=== PATIENT | female | born 1950 | race Caucasian/White ===

== ENCOUNTER → 2019-11-22 | Outpatient (CLI) | payer MEDICARE, OTHER ==
[~2019-11-22] MED LIST: BRIM0.2S13 OD; CYCL10TA5 PO; GLIP2.5T6 PO; LATA0.0015 OP; METF500T13 PO; OMEP-221 PO; PREDOPD OU; ROSU20TA5 PO; SUCR1TAB56 PO; VITA-199 PO
== END ==
LOC: M LABSMTC 12:00
PROVIDERS: ATTEND Anesthesiology
DX: Z01.812 Encounter for preprocedural laboratory examination (principal); Z20.828 Contact with and (suspected) exposure to other viral communicable diseases
CPT/HCPCS: C9803; U0003

== ENCOUNTER 2019-11-27 07:51 | Day surgery (SDC) | payer MEDICARE ==
[~2019-11-27] VITALS: Ht 154.9 cm; Wt 78.9 kg
[~2019-11-27 07:51] MED LIST changes: +LIDOCAINE 2% 100MG/5ML SDV (FOR ANES.) As Ordered ONE; +NS 1,000 ML IV ONE; +fentaNYL 100 MCG/2 ML INJECTION (J3010) As Ordered ONE; +propofoL 200 MG/20 ML VIAL As Ordered ONE
--- NOTE | 2019-11-27 09:14 | ROOR ---
Patient Name: Malia Bravo Procedure Date: 11/27/2019 8:48 AM Date of : 1950 Age: 68 Room: [facility] Gender: Female Note Status: Finalized Procedure: Upper Endoscopy + Biopsies Indications: Heartburn, Chest pain (non cardiac) Providers: Sarmad Vazquez MD Referring MD: Shirin Hernandez NP Requesting Provider: Medicines: Monitored Anesthesia Care Complications: No immediate complications. Procedure: Pre-Anesthesia Assessment: - The heart rate, respiratory rate, oxygen saturations, blood pressure, adequacy of pulmonary ventilation, and response to care were monitored throughout the procedure. The Endoscope was introduced through the mouth, and advanced to the second part of duodenum. The upper GI endoscopy was accomplished without difficulty. The patient tolerated the procedure well. Findings: The Z-line was irregular and was found 35 cm from the incisors. One cratered esophageal ulcer with no bleeding and no stigmata of recent bleeding was found 35 cm from the incisors. Biopsies were taken with a cold forceps for histology. A small hiatal hernia was present. No other significant abnormalities were identified in a careful examination of the stomach. The exam of the duodenum was otherwise normal. Impression: - Z-line irregular, 35 cm from the incisors. - Non-bleeding esophageal ulcer. Biopsied. - Small hiatal hernia. - The examination was otherwise normal. Recommendation: - Await pathology results. - Discharge patient to home. - Follow an antireflux regimen. - Continue present medications. - Await pathology results. - Telephone GI clinic for pathology results in 1 week. - Use sucralfate tablets 1 gram PO BID. - The findings and recommendations were discussed with the patient. Sarmad Vazquez MD Sarmad Vazquez MD 11/27/2019 9:13:28 AM Electronically signed by Sarmad Vazquez MD Number of Addenda: 0 Note Initiated On: 11/27/2019 8:48 AM Estimated Blood Loss: Estimated blood loss: none.
[2019-11-27 09:46] VITALS: BP 152/72
== END 2019-11-27 09:55 | disposition home or self-care (01) ==
LOC: M OPP 07:51
PROVIDERS: ATTEND Internal Medicine Gastroenterology
DX: K22.8 Other specified diseases of esophagus (principal); K22.10 Ulcer of esophagus without bleeding; K44.9 Diaphragmatic hernia without obstruction or gangrene; R12 Heartburn; R07.89 Other chest pain; K21.9 Gastro-esophageal reflux disease without esophagitis; E11.9 Type 2 diabetes mellitus without complications; Z79.84 Long term (current) use of oral hypoglycemic drugs; Z79.899 Other long term (current) drug therapy; Z87.891 Personal history of nicotine dependence
CPT/HCPCS: 43239; 88305; J3010

== ENCOUNTER → 2020-03-28 | Outpatient (CLI) | payer MEDICARE ==
[~2020-03-28] MED LIST changes: +ACUL0.5S; -LIDOCAINE 2% 100MG/5ML SDV (FOR ANES.) As Ordered ONE; -NS 1,000 ML IV ONE; +OMEG350C PO; -fentaNYL 100 MCG/2 ML INJECTION (J3010) As Ordered ONE; -propofoL 200 MG/20 ML VIAL As Ordered ONE
== END ==
LOC: M LABSMTC 09:52
PROVIDERS: ATTEND Anesthesiology
DX: Z01.818 Encounter for other preprocedural examination (principal)

== ENCOUNTER 2020-04-02 06:57 | Day surgery (SDC) | payer MEDICARE ==
[~2020-04-02] VITALS: Ht 154.9 cm; Wt 82.6 kg
[2020-04-02] MEDS ORDERED: NS 1,000 ML IV ONE (07:00)
[2020-04-02] MEDS ORDERED: LIDOCAINE 2% 100MG/5ML SDV (FOR ANES.) As Ordered ONE (07:21)
[2020-04-02] MEDS ORDERED: propofoL 200 MG/20 ML VIAL As Ordered ONE (07:21)
[2020-04-02] MEDS ORDERED: fentaNYL 100 MCG/2 ML INJECTION (J3010) As Ordered ONE (07:22)
--- OUTSIDE RECORDS SUMMARY | 2020-04-02 08:06 | CCD | Continuity of Care Document ---
Author Author Malia VAZQUEZ M.D. Organization Unknown Address [address] [place] [id number] Phone [phone] Care Team Providers Care Trim Installer Name Role Phone Shirin Hernandez AUTM [phone] Problems Active Problems Provider Date Dysphagia Sarmad Vazquez M.D. Onset: 10/31/19 20 Social History Type Date Description Comments Sex Unknown ETOH Use Denies alcohol use Tobacco Use Start: Unknown End: Unknown Patient is a former smoker QUIT 4 YEARS AGO Allergies, Adverse Reactions, Alerts Description No Known Drug Allergies Medications Active Medications SIG Qnty Indications Ordering Provide r Date Omeprazole 40mg Capsules DR 1 cap by mouth twice a day before breakfast and dinner. 180caps Sarmad Vazquez M.D. 10/31/2019 Carafate 1gm Tablets 1 tab by mouth twice a day before meals 60tabs Sarmad Vazquez M.D. 10/16 Rosuvastatin Calcium 20mg Tablets Take One Tablet By Mouth AT Bedtime Unknown Glipizide ER 2.5mg Tablets ER 24HR Take One Tablet By Mouth Every Day Unknown Cyclobenzaprine HCL 10mg Tablets Take One Tablet By Mouth Every Day as Needed Unknown Latanoprost 0.005% Solution Instill 1 Drop In Each Eye Once Daily AT Bedtime Unknown Brimonidine Tartrate 0.2% Solution Instill 1 Drop In The Right Eye Two Times A Day Unknown Vitamin D3 [id number]/GM Liquid Unknown Immunizations Description No Information Available Vital Signs Date Vital Result Comment 01/16/2020 10:01am Height 62 inches 5'2" Weight 178.00 lb BP Systolic 132 mmHg BP Diastolic 82 mmHg Heart Rate 66 /min BMI (Body Mass Index) 32.6 kg/m2 Weight 80.741 kg Body Temperature 97.0 F 10/31/2019 11:00am Height 62 inches 5'2" Weight 172.00 lb BP Systolic 133 mmHg BP Diastolic 79 mmHg Heart Rate 69 /min BMI (Body Mass Index) 31.5 kg/m2 Weight 78.019 kg Body Temperature 97.0 F Results Test Acquired Date Facility Test Result H/L Range Note Laboratory test finding 11/27/2019 [facility] [address] [place] [address] Pathology Request For Service (SEE NOTE) 1, 2 1 FINAL DIAGNOSIS Esophageal ulcer, biopsy: Squamocolumnar junction mucosa with moderate acute and chronic inflammation and mucosal erosion. No viral cytopathic effect is noted. No intestinal metaplasia is noted. 11/28/2019 - 110 CLINICAL DIAGNOSIS Pain when eating 11/27/2019 - 1345 GROSS DIAGNOSIS Received in formalin labeled "biopsy esophageal ulcer" is a 0.8 x 0.3 x 0.2 cm. aggregate of mucosal fragments. All in one. - 11/27/20191345 Signed Adelina Rodriguez MD 11/28/2019 1526 2 11/29/19 (WedNov 28) 07:04 AM SARMAD VAZQUEZ benign path 12/05/19 (WedDec 04) 12:02 PM YUNG WAITE REPORTED TO PATIENT Procedures Date Code Description Status 11/27/2019 82513 Endoscopy Upper GI Biopsy Comple [facility] Description No Information Available Encounters Type Date Location Provider Dx Diagnosis Office Visit 01/16/2020 9:45a Main Office Sarmad Vazquez M.D. K 21.9 Gastro-esophageal reflux disease without esophagitis Office Visit 10/31/2019 10:00a Main Office Sarmad Vazquez M.D. K 21.9 Gastro-esophageal reflux disease without esophagitis Assessments Date Code Description Provider 01/16/2020 K21.9 Gastroesophageal reflux disease Sarmad Vazquez M.D. 11/27/2019 R07.89 Other chest pain Sarmad miller M.D. 11/27/2019 K22.9 Disease of esophagus, unspecifie d Sarmad Vazquez M.D. 11/27/2019 K44.9 Diaphragmatic hernia without obs truction or gangrene Sarmad Vazquez M.D. 10/31/2019 K21.9 Gastroesophageal reflux disease Sarmad Vazquez M.D. Plan of Treatment Future Appointment(s):* 04/02/2020 8:00 am - Sarmad Vazquez M.D. at Main Office 01/16/2020 - Sarmad Vazquez M.D.* K21.9 Gastroesophageal reflux disease* Comments:* 69 yo wf who presents for a h/o heartburn, and atypical chest pain. No dysphagia, or weight loss. Pt had an ugi, which showed reflux only. No c/o abdominal pain, weight loss, change in bowel habits, or rectal bleeding. No family h/o colon cancer. No h/o chest pain, or sob. Egd showed an esophageal ulcer. Pt feels well on a ppi bid.Plan:1. Repeat egd to check for healing,2. Maintain PPI bid until scope is completed. Functional Status Description No Information Available Mental Status Description No Information Available Referrals Description No Information Available
--- OUTSIDE RECORDS SUMMARY | 2020-04-02 08:07 | CCD | Continuity of Care Document ---
Author Author [facility] Organization [facility] Address [address] [place] [address] Phone Support Name Relationship Address Phone Shirin Hernandez PRS [address] [place] [address] [place] [address] Allergies, Adverse Reactions, Alerts Allergen Type Severity Reaction Last Updated Verified Status tramadol Allergy Severe swelling of face and body January 03, 2020 8:31am Yes Active bacitracin Allergy Unkno wn January 03, 2020 8:31am Yes Active polymyxin B Allergy Unkn own January 03, 2020 8:31am Yes Active nicotine Adverse Reaction Moderate RASH January 03, 2020 8:31am Yes Active Medications Medication Status Dose Units Route Directions Qty Days Start Date End Date Instructions Cyclobenzaprine Discontinued 10 MG PO .every day as need ed July 05, 2018 10:5 9am November 15, 2018 9:05am NEEDED Flucelvax Quad 2341-1344 (PF) (flu vac q s 2018(4 yr up)CD(PF)) 60 mcg (15 mcg x Discontinued 0.5 ML IM 1 Time/Once 0.5 January 03, 2019 9:48am January 03, 2019 10:47am Metformin Discontinued 5 00 MG PO 2 Times Per Day 60 30 January 03, 2019 10:06am April 04, 2019 11:34am Rosuvastatin Discontinued 20 MG PO At Bedtime 30 January 03, 2019 10:07am March 27, 2019 7:29am Cholecalciferol (Vitamin D3) Active 77263 UNIT PO 1 Time Per Week January 03, 2019 10:08am Azithromycin Discontinued 250 MG PO daily 6 5 January 03, 2019 10:20am January 08, 2019 12:02am 2 tabs today, then one tab daily X 4. Doxycycline Monohydrate Discontinued 150 MG PO 2 Times Per Day September 05, 2018 9:3 3am January 03, 2019 9:58am Omeprazole Discontinued 40 MG PO daily February 14, 2019 11:39am July 04, 2019 9:02am Montelukast Discontinued 10 MG PO Every Evening March 21, 2019 9:17am July 04, 2019 9:02am Metformin Discontinued 0 .ROUTE daily August 30, 2019 9:09am August 30, 2019 9:24am TAKE ONE TABLET BY MOUTH daily; Brimonidine Discontinued RIGHT EYE August 30, 2019 9:11am January 03, 2020 8:24am Glipizide Discontinued 2 .5 MG PO daily August 30, 2019 9:26am September 26, 2019 2:27pm Afluria Qd (3yr up)(PF) (flu vac [id number] 36mos up(PF)) Discontinued 60 MCG IM 1 Time/Once 0.5 November 29, 2019 7:49am November 282019 8:16am Omeprazole Active MG PO November 29, 2019 7:56am Sucralfate Active PO November 29, 2019 7:56am Rosuvastatin (Crestor) 20 mg tablet Discontinued 1 TAB PO O nce Per Day June 17, 2010 3:27p m June 17, 2011 10:08am Bimatoprost (Lumigan) Discontinued 1 DROPS OP Once Per Day June 27, 2010 12:33 pm March 29, 2013 3:47pm Esomeprazole Magnesium (Nexium) 40 mg ca psule,delayed release(DR/EC) Discontinued 1 TAB PO Once Per Day 0 June 27, 2010 12:34pm June 27 1 1:10pm Albuterol Sulfate (Ventolin Hfa) 90 mcg/ actuation HFA aerosol inhaler Discontinued 2 PUFFS IH Every 6 hours June 27, 2010 12:34pm June 27 1 1:10pm Tiotropium Kelly (Spiriva With Handiha ler) 18 mcg capsule, w/inhalation device Discontinued 1 PUFFS IH 0 June 27, 2010 12:35pm October 1:30pm Cholecalciferol (Vitamin D3) Discontinued 1 TAB PO Once Per Day June 27, 2010 12:35 pm April 08, 2011 4:13pm Bupropion Hcl (Budeprion Sr) 150 mg tabl et sustained-release 12 hr Discontinued 1 TAB PO 2 Times Per Day 0 June 27, 2010 12:36pm June 27 1 1:10pm Bupropion Hcl (Budeprion Sr) 150 mg tabl et sustained-release 12 hr Discontinued 1 TAB PO 2 Times Per Day 60 June 27, 2010 1:10pm October 1:29pm Esomeprazole Magnesium (Nexium) 40 mg ca psule,delayed release(DR/EC) Discontinued 1 TAB PO Once Per Day 30 June 27, 2010 1:10pm April 08, 2011 4:13pm Albuterol Sulfate (Ventolin Hfa) 90 mcg/ actuation HFA aerosol inhaler Discontinued 2 PUFFS IH Q6HRAC 1 June 27, 2010 1:10pm July 06, 2011 10:59am Cyclobenzaprine Hcl (Flexeril) Discontinue d 10 MG PO Once Per Day 30 June 27, 2010 1:10 pm October 27, 2010 1:29pm Bupropion Hcl (Budeprion Sr) 150 mg tabl et sustained-release 12 hr Discontinued 1 TAB PO 2 Times Per Day 60 October 27, 2010 1:29pm December 31, 2010 4:35pm Tiotropium Kelly (Spiriva With Handiha ler) 18 mcg capsule, w/inhalation device Discontinued 1 PUFFS IH Once Per Day 30 October 27, 2010 1:30pm December 31, 2010 4:35pm Pneumococcal 23-Hui Ps Vaccine (Pneumova x-23) 25 mcg/0.5 mL solution Discontinued 0.5 MILLILI ANGELICA IM ONE TIME 1 October 27, 2010 2:57pm 2010 2:59pm Metformin (Glucophage Xr) 500 mg tablet extended release 24 hr Discontinued 500 MG PO Once Per Day 90 November 03, 2010 2:38pm November 26, 2010 8:03am Metformin (Glucophage Xr) 500 mg tablet extended release 24 hr Discontinued 500 MG PO 2 Times Per Day 180 November 26, 2010 8:03am March 192011 4:13pm Bupropion Hcl (Budeprion Sr) 150 mg tabl et sustained-release 12 hr Discontinued 1 TAB PO 2 Times Per Day 60 December 31, 2010 4:35pm April 08, 2011 3:43pm Tiotropium Kelly (Spiriva With Handiha ler) 18 mcg capsule, w/inhalation device Discontinued 1 PUFFS IH Once Per Day 30 December 31, 2010 4:35pm February 01, 2012 3:25pm Esomeprazole Magnesium (Nexium) 40 mg ca psule,delayed release(DR/EC) Discontinued 1 TAB PO Once Per Day 30 April 08, 2011 4:13pm March 28, 2012 8:54am Metformin (Glucophage Xr) 500 mg tablet extended release 24 hr Discontinued 1000 MG PO 2 Times Per Day 360 April 08, 2011 4:13pm April, 2012 7:48am Ergocalciferol (Vitamin D2) (Vitamin D2) Discontinued 05226 UNITS PO 2XWEEKLY 24 April 08, 2011 4:13pm July 06, 2011 12:19pm Varenicline (Chantix Continuing Month Dereje) 1 mg tablet Discontinued 1 MG PO 2 Times Per Day 60 April 08, 2011 4:20pm November 02, 2011 8:47am Blood Sugar Diagnostic (Test Strip) Discontinued 1 STRIP IN 2 Times Per Day 50 May 05, 2011 1:23pm May 05, 2011 1:26pm Lancets Discontinued 1 EACH MC 2 Times Per Day 100 May 05, 2011 1:25pm May 05, 2011 1:26pm Lancets Discontinued 1 EACH MC 2 Times Per Day 100 May 05, 2011 1:26pm February 16, 2017 4:35pm Blood Sugar Diagnostic (Test Strip) Discontinued 1 STRIP IN 2 Times Per Day 50 May 05, 2011 1:26pm February 24, 2016 8:04am Rosuvastatin (Crestor) 20 mg tablet Discontinued 1 TAB PO O nce Per Day 90 June 17, 2011 9:31a m June 29, 2012 10:14am Albuterol Sulfate (Ventolin Hfa) 90 mcg/ actuation HFA aerosol inhaler Discontinued 2 PUFFS IH Q4HRS July 06, 2011 10:59am March 9:19am Ergocalciferol (Vitamin D2) (Vitamin D2) Discontinued 18724 UNITS PO 1XMONTHLY 3 July 06, 2011 12:19pm March 28, 2012 8:55am Bupropion Hcl (Budeprion Sr) 150 mg tabl et sustained-release 12 hr Discontinued 1 TAB PO 2 Times Per Day 60 November 02, 2011 9:42am June 1:15pm Tiotropium Kelly (Spiriva With Handiha ler) 18 mcg capsule, w/inhalation device Discontinued 1 PUFFS IH Once Per Day February 01, 2012 3:25pm July 01, 2012 1:15pm Albuterol Sulfate (Ventolin Hfa) 90 mcg/ actuation HFA aerosol inhaler Discontinued 2 PUFFS IH Q4HRS 1 March 28, 2012 9:19am March 29, 2013 4:15pm Pantoprazole (Protonix) 40 mg tablet,delayed release ( DR/EC) Discontinued 40 MG PO Once Per Day March 28, 2012 9:24am March 29, 2013 4:10pm Metformin (Glucophage Xr) 500 mg tablet extended release 24 hr Discontinued 1000 MG PO 2 Times Per Day 360 May 06, 2012 7:48am March 4:10pm Aspirin (Ecotrin) 325 mg tablet,delayed release (DR/EC ) Discontinued 325 MG PO Once Per Day May 30, 2012 9:11am May 30, 2012 9:11am Aspirin (Ecotrin) 325 mg tablet,delayed release (DR/EC ) Discontinued 325 MG PO Once Per Day May 30, 2012 9:11am October 302013 2:47pm Rosuvastatin (Crestor) 20 mg tablet Discontinued 1 TAB PO O nce Per Day June 29, 2012 10:1 4am March 29, 2013 4:10pm Bupropion Hcl (Budeprion Sr) 150 mg tabl et sustained-release 12 hr Discontinued 1 TAB PO 2 Times Per Day 60 July 01, 2012 1:15pm March 24, 2013 9:20am Tiotropium Kelly (Spiriva With Handiha ler) 18 mcg capsule, w/inhalation device Discontinued 1 PUFFS IH Once Per Day July 01, 2012 1:15pm March 29, 2013 4:10pm Bupropion Hcl (Budeprion Sr) 150 mg tabl et sustained-release 12 hr Discontinued 1 TAB PO 2 Times Per Day 60 March 24, 2013 9:20am October 20, 2013 3:28pm Pantoprazole (Protonix) 40 mg tablet,delayed release ( DR/EC) Discontinued 40 MG PO Once Per Day March 29, 2013 4:10pm October 17, 2013 10:34am Metformin (Glucophage Xr) 500 mg tablet extended release 24 hr Discontinued 1000 MG PO 2 Times Per Day 360 March 29, 2013 4:10pm May 1:29pm Rosuvastatin (Crestor) 20 mg tablet Discontinued 1 TAB PO O nce Per Day 90 March 29, 2013 4:10pm July 06, 2013 8:34am Tiotropium Kelly (Spiriva With Handiha ler) 18 mcg capsule, w/inhalation device Discontinued 1 PUFFS IH Once Per Day 30 March 29, 2013 4:10pm October 17, 2013 10:34am Albuterol Sulfate (Ventolin Hfa) 90 mcg/ actuation HFA aerosol inhaler Discontinued 2 PUFFS IH Q4HRS 1 March 29, 2013 4:15pm February 162014 1:46pm Clarithromycin Discontinued 500 MG PO 2 Times Per Day 20 March 29, 2013 4:16pm August 21, 2013 1:45pm Metformin (Glucophage Xr) 500 MG tablet extended release 24 hr Discontinued 1000 MG PO 2 Times Per Day 360 May 24, 2013 1:29pm August 21, 4 2:11pm Rosuvastatin (Crestor) 20 MG tablet Discontinued 1 TAB PO O nce Per Day 90 July 06, 2013 8:34 am June 04, 2014 5:15pm Cyclobenzaprine Discontinued 1 TAB PO Once Per Day August 09, 2013 7:33am August 21, 2013 2:15pm Metformin Discontinued 5 00 MG PO 2 Times Per Day 60 August 21, 2013 2:12pm June 04, 2014 5:15pm Cyclobenzaprine Discontinued 1 TAB PO Once Per Day August 21, 2013 2:15pm March 06, 2014 1:30pm Pantoprazole (Protonix) 40 MG tablet,delayed release ( DR/EC) Discontinued 40 MG PO Once Per Day October 17, 2013 10:34am May 252014 8:51am Bupropion Hcl (Budeprion Sr) 150 MG tabl et sustained-release 12 hr Discontinued 1 TAB PO 2 Times Per Day 60 October 20, 2013 3:28pm April 10:07am Sitagliptin (Januvia) 50 MG tablet D iscontinued 50 MG PO O nce Per Day October 30, 201 4 3:14pm November 24, 2013 12:40pm Canagliflozin (Invokana) 100 MG tablet Discontinued 100 MG PO Once Per Day November 24, 2013 12:41pm May 07, 2014 8:16am Naproxen Discontinued 500 MG PO 2 Times Per Day 60 December 18, 2013 9:59am January 29, 2014 10:56am Cyclobenzaprine Discontinued 1 TAB PO Once Per Day March 06, 2014 1:30pm July 30, 2014 3:01pm NEEDED Cholecalciferol (Vitamin D3) (Vitamin D3) 2000 UNIT ta blet Discontinued 2000 UNIT PO Once Per Day March 06, 2014 1:30pm April 10:04am Albuterol Sulfate (Ventolin Hfa) 18 GM HFA aerosol inh aler Discontinued 2 PUFFS IH Q4HRS March 06, 2014 1:46pm March 06, 2014 2:03pm Albuterol Sulfate (Proair Hfa) 8.5 GM HFA aerosol inha ler Discontinued 1 - 2 PUFFS IH Four Times a day PRN March 06, 2014 2:03pm May 11:22am Brimonidine-Timolol (Combigan Eye Drops) 5 ML drops Discontinued 1 DROPS OP Every 12 Hours April 30, 2014 9:42am November 18, 2017 1:01pm Cholecalciferol (Vitamin D3) (Vitamin D3) 2000 UNIT ta blet Discontinued 2000 UNIT PO Once Per Day April 30, 2014 10:04am July 30, 2014 2:58pm Canagliflozin (Invokana) 100 MG tablet Discontinued 100 MG PO Once Per Day May 07, 2014 8:16am July 30, 2014 3:01pm Pantoprazole (Protonix) 40 MG tablet,delayed release ( DR/EC) Discontinued 40 MG PO Once Per Day 30 May 25, 2014 8:51am October 292014 12:27pm Rosuvastatin (Crestor) 20 MG tablet Discontinued 1 TAB PO O nce Per Day 90 June 04, 2014 5:15pm May 27, 2015 11:21am Metformin Discontinued 5 00 MG PO 2 Times Per Day 60 June 04, 2014 5:15pm October 29, 2014 12:27pm Ergocalciferol (Vitamin D2) (Vitamin D2) 27626 UNIT ca psule Discontinued 1 CAP PO weeklly 4 July 30, 2014 3:00pm October 29, 2014 12:27pm Cyclobenzaprine Discontinued 1 TAB PO Once Per Day 30 July 30, 2014 3:01pm May 27, 2015 11:21am NEEDED Canagliflozin (Invokana) 100 MG tablet Discontinued 100 MG PO Once Per Day July 30, 2014 3:01pm September 28, 2014 8:03am Canagliflozin (Invokana) 100 MG tablet Discontinued 100 MG PO Once Per Day September 28, 2014 8:03am October 29, 2014 12:38pm Pantoprazole (Protonix) 40 MG tablet,delayed release ( DR/EC) Discontinued 40 MG PO Once Per Day October 29, 2014 12:27pm [facility] 2014 12:38pm Ergocalciferol (Vitamin D2) (Vitamin D2) 87024 UNIT ca psule Discontinued 1 CAP PO weeklly October 29, 2014 12:27pm May 27, 2015 10:56am Metformin Discontinued 5 00 MG PO 2 Times Per Day 60 October 29, 2014 12:27pm October 29, 2014 12:39pm Pantoprazole (Protonix) 40 MG tablet,delayed release ( DR/EC) Discontinued 40 MG PO Once Per Day October 29, 2014 12:38pm [facility] 2015 7:20am Canagliflozin (Invokana) 100 MG tablet Discontinued 100 MG PO Once Per Day 90 October 29, 2014 12:38pm September 09, 2015 7:54am Metformin Discontinued 5 00 MG PO 2 Times Per Day 180 October 29, 2014 12:39pm May 27, 2015 11:21am Aspirin (Aspir 81) 81 MG tablet,delayed release (DR/EC ) Discontinued 81 MG PO Once Per Day October 29, 2014 12:45pm November 18, 2015 1:00pm Bupropion Hcl (Smoking Deter) Discontinued 150 MG PO 2 Times Per Day 60 November 30, 2014 11:24am February 21, 2015 4:00pm Bupropion Hcl Discontinued 200 MG PO 2 Times Per Day 60 February 21, 2015 3:57pm September 18, 2015 9:29am Amoxicillin-Pot Clavulanate (Augmentin 8 75-125 Tablet) 1 EACH tablet Discontinued 875 MG PO 2 Times Per Day 20 February 21, 2015 4:11pm May 27, 2015 10:56am Ergocalciferol (Vitamin D2) (Vitamin D2) 38909 UNIT ca psule Discontinued 1 CAP PO every other week 2 May 27, 2015 10:56am September 20, 2015 4:45pm Cyclobenzaprine Discontinued 1 TAB PO Once Per Day May 27, 2015 11:21am February 16, 2017 4:35pm NEEDED Rosuvastatin (Crestor) 20 MG tablet Discontinued 1 TAB PO O nce Per Day May 27, 2015 11:21am November 18, 2015 1:04pm Metformin Discontinued 5 00 MG PO 2 Times Per Day May 27, 2015 11:am November 18, 2015 1:04pm Albuterol Sulfate (Proair Hfa) 8.5 GM HFA aerosol inha ler Discontinued 1 - 2 PUFFS IH Four Times a day PRN May 27, 2015 11:22am December 302015 2:48pm Empagliflozin (Jardiance) 10 MG tablet Discontinued 10 MG PO O nce Per Day September 09, 2015 8:03am December 31, 2015 2:48pm Bupropion Hcl Discontinued 200 MG PO 2 Times Per Day 60 September 18, 2015 9:29am September 19, 2015 6:57pm Bupropion Hcl Discontinued 200 MG PO 2 Times Per Day 60 September 19, 2015 6:57pm December 25, 2015 11:45am Ergocalciferol (Vitamin D2) (Vitamin D2) 11702 UNIT ca psule Discontinued 1 CAP PO every other week September 20, 2015 4:45pm December 3:03pm Pantoprazole (Protonix) 40 MG tablet,delayed release ( DR/EC) Discontinued 40 MG PO Once Per Day November 06, 2015 7:20am December 31, 2015 2:48pm Latanoprost Discontinued 1 DROPS BOTH EYES Once Per Day November 18, 2015 12 :20pm February 16, 2017 4:35pm Aspirin (Aspir 81) 81 MG tablet,delayed release (DR/EC ) Discontinued 81 MG PO Once Per Day November 18, 2015 1:00pm February 4:35pm Rosuvastatin (Crestor) 20 MG tablet Discontinued 1 TAB PO O nce Per Day November 18, 2015 1:04pm December 17, 2015 10:21am Metformin Discontinued 5 00 MG PO 2 Times Per Day November 18, 2015 1:04pm December 25, 2015 11:45am Azithromycin Discontinued 250 MG PO As Directed (Daily ) November 18, 2015 1: 24pm February 24, 2016 8:04am TAKE 2 TABS STAT AND THEN ONE DAILY Rosuvastatin (Crestor) 20 MG tablet Discontinued 1 TAB PO O nce Per Day December 17, 2015 10:21am December 31, 2015 3:03pm Bupropion Hcl Discontinued 200 MG PO 2 Times Per Day 180 December 25, 2015 11:45am December 25, 2015 11:45am Bupropion Hcl Discontinued 200 MG PO 2 Times Per Day December 25, 2015 11:45am December 31, 2015 3:00pm Metformin Discontinued 5 00 MG PO 2 Times Per Day December 25, 2015 11:45am December 25, 2015 11:46am Metformin Discontinued 5 00 MG PO 2 Times Per Day December 25, 2015 11:46am December 25, 2015 3:27pm Metformin Discontinued 5 00 MG PO 2 Times Per Day December 25, 2015 3:27pm February 16, 2017 4:35pm Pantoprazole (Protonix) 40 MG tablet,delayed release ( DR/EC) Discontinued 40 MG PO Once Per Day December 31, 2015 2:48pm December 31, 2015 2:49pm Albuterol Sulfate (Proair Hfa) 8.5 GM HFA aerosol inha ler Discontinued 1 - 2 PUFFS IH Four Times a day PRN 3 December 31, 2015 2:48pm December 31, 2015 2:49pm Empagliflozin (Jardiance) 10 MG tablet Discontinued 10 MG PO O nce Per Day December 31, 2015 2:48pm December 31, 2015 2:49pm Pantoprazole (Protonix) 40 MG tablet,delayed release ( DR/EC) Discontinued 40 MG PO Once Per Day December 31, 2015 2:49pm December 31, 2015 3:03pm Albuterol Sulfate (Proair Hfa) 8.5 GM HFA aerosol inha ler Discontinued 1 - 2 PUFFS IH Four Times a day PRN December 31, 2015 2:49pm December 31, 2015 3:03pm Empagliflozin (Jardiance) 10 MG tablet Discontinued 10 MG PO O nce Per Day December 31, 2015 2:49pm December 31, 2015 3:01pm Bupropion Hcl Discontinued 200 MG PO 2 Times Per Day December 31, 2015 3:00pm February 16, 2017 4:02pm Empagliflozin (Jardiance) 10 MG tablet Discontinued 10 MG PO O nce Per Day December 31, 2015 3:01pm February 16, 2017 4:35pm Pantoprazole (Protonix) 40 MG tablet,delayed release ( DR/EC) Discontinued 40 MG PO Once Per Day December 31, 2015 3:03pm February 162017 4:35pm Ergocalciferol (Vitamin D2) (Vitamin D2) 60488 UNIT ca psule Discontinued 1 CAP PO every other week December 31, 2015 3:03pm February 162017 4:35pm Albuterol Sulfate (Proair Hfa) 8.5 GM HFA aerosol inha ler Discontinued 1 - 2 PUFFS IH Four Times a day PRN December 31, 2015 3:03pm February 162017 4:02pm Rosuvastatin (Crestor) 20 MG tablet Discontinued 1 TAB PO O nce Per Day December 31, 2015 3:03pm December 11, 2016 7:32am Bimatoprost (Lumigan) 5 ML drops Dis continued 1 DROPS RIGHT EYE At Bedtime February 24, 2016 8:04am November 18, 2017 1:01pm Rosuvastatin (Crestor) 20 MG tablet Discontinued 1 TAB PO O nce Per Day December 11, 2016 7:32am December 14, 2016 10:24am Rosuvastatin (Crestor) 20 MG tablet Discontinued 1 TAB PO O nce Per Day December 14, 2016 10:24am February 16, 2017 4:35pm Cyclobenzaprine Discontinued 1 TAB PO Once Per Day February 16, 2017 4:35pm August 27, 2017 2:47pm NEEDED Latanoprost Discontinued 1 DROPS BOTH EYES Once Per Day February 16, 2017 4: 35pm June 15, 2018 6:17am Latanoprost Active 1 DROPS BOTH EYES Once Per Day February 16, 2017 4:35pm Glyburide Discontinued 2 .5 MG PO Once Per Day February 16, 2017 4:35pm March 02, 2017 4:01pm Aspirin (Aspir 81) 81 MG tablet,delayed release (DR/EC ) Discontinued 81 MG PO Once Per Day February 16, 2017 4:35pm June 15 6:17am Aspirin (Aspir 81) 81 MG tablet,delayed release (DR/EC ) Active 81 MG PO Once Per Day February 16, 2017 4:35pm Lancets Discontinued 1 EACH MC 2 Times Per Day February 16, 2017 4:35pm June 15, 2018 6:17am Lancets Active 1 EACH MC 2 Times Per Day 100 February 16, 2017 4:35pm Ergocalciferol (Vitamin D2) (Vitamin D2) 31323 UNIT ca psule Discontinued 1 CAP PO every other week February 16, 2017 4:35pm November 1:01pm Lovastatin Discontinued 20 MG PO Once Per Day 90 February 16, 2017 4:35pm February 17, 2018 7:36am Metformin Discontinued 5 00 MG PO 2 Times Per Day 180 February 16, 2017 4:35pm November 18, 2017 1:16pm Ranitidine Hcl Discontinued 150 MG PO Once Per Day 90 February 17, 2017 3:23pm June 15, 2018 6:17am Ranitidine Hcl Discontinued 150 MG PO Once Per Day 90 February 17, 2017 3:23pm January 03, 2019 9:58am Cyclobenzaprine Discontinued 1 TAB PO Once Per Day August 27, 2017 2:47pm June 15, 2018 7:12am NEEDED Cyclobenzaprine Discontinued 1 TAB PO Once Per Day August 27, 2017 2:47pm July 05, 2018 11:00am NEEDED Metformin Hcl Discontinued 500 MG PO 2 Times Per Day 60 January 10, 2018 1:58pm June 05, 2018 6:43am Cholecalciferol (Vitamin D3) Discontinued 43445 UNIT PO 1 Time Per Week January 10, 2018 2:10pm June 15, 2018 8:22am Cholecalciferol (Vitamin D3) Discontinued 60680 UNIT PO 1 Time Per Week January 10, 2018 2:10pm January 03, 2019 10:08am Pneumoc 13-Hui Conj-Dip Cr(Pf) (Prevnar 13*) 0.5 ML sy ringe Discontinued 0.5 ML IM ONE TIME January 10, 2018 2:33pm January 10, 2018 2:49pm Flu Vacc [id number] 6mos Up(Pf) (Afluria Quad Syringe) 60 MCG/0.5 ML syringe Discontinued 60 MCG IM ONE TIME January 10, 2018 2:33pm January 10, 2018 2:49pm Rosuvastatin Calcium Discontinued 20 MG PO At Bedtime February 17, 2018 7:36am January 03, 2019 10:08am Metformin Hcl Discontinued 500 MG PO 2 Times Per Day 180 90 June 05, 2018 6:43am January 03, 2019 10:07am Cyclobenzaprine Active 10 MG PO .every day as needed November 15, 2018 9 :05am NEEDED Blood-Glucose Meter (Onetouch Verio Flex Start) kit Active 0 .ROUTE .MEDSUPPLY 1 January 11, 2019 5:05pm Dx E11.9 TEST STRI PS Test BS daily Blood Sugar Diagnostic (Onetouch Verio) strip Active 0 .ROUTE .MEDSUPPLY 100 January 11, 2019 5:05pm Dx E11.9 TEST STRI PS Test BS daily Azithromycin Discontinued 250 MG PO daily 6 February 14, 2019 2:45pm February 19, 2019 12:05am 2 tabs today, then one tab daily X 4. Meloxicam Discontinued 7 .5 MG PO daily February 17, 2019 8:45am March 21, 2019 8:55am Rosuvastatin Discontinued 0 .ROUTE .COMPLEX March 27, 2019 7:29am 2019 8:28am TAKE ONE TABLET BY MOUTH AT BEDTIME Metformin Discontinued 5 00 MG PO 2 Times Per Day 180 April 04, 2019 11:33am June 22, 2019 8:04am Metformin Discontinued 0 .ROUTE .COMPLEX 180 June 22, 2019 8:03am J maru2019 9:11am TAKE ONE TABLET BY MOUTH TWICE A DAY Metformin Discontinued 5 00 MG PO 2 Times Per Day 180 September 20, 2019 12:59pm January 03, 2020 8:24am Glipizide Active 2.5 MG PO daily September 26, 2019 2:26pm Rosuvastatin Active 0 .ROUTE .COMPLEX 2019 8:28am TAKE ONE TABLET BY MOUTH AT BEDTIME Problems Inactive/Resolved Problems Medical Problem Onset Date Status Nicotine dependence with current use Resolved Hx of total hysterectomy Resolved Actinic keratoses Reso lved Essential hypertension Resolved Pain with swallowing R esolved Cough Resolved Mixed hyperlipidemia R esolved Chronic kidney disease Resolved Breast cancer screening Resolved Smoking greater than 30 pack years Resolved Chronic renal impairment Resolved Bilateral hip pain Res olved Abnormal CT lung screening Resolved Bronchitis Resolved Procedures Procedure Date Performed Status Xray UGI w/o KUB-SINGLE CONTRA September 14, 2019 9:12am completed CT Thorax without contrast August 10:28am completed 3D DIG MAMMO SCREEN BILAT March 202019 11:42am completed CT Low Dose Lung Ca Screening Januar 2019 11:45am completed Xray Chest 2 view PA/LAT February 142018 12:29pm completed HIPS BILAT 2 VIEW W/PELVIS February 14, 2019 12:29pm completed Relevant Diagnostic Tests and/or Laboratory Data Laboratory Results Test Date/Time Result Interpretation Reference Range Result Comment Performing Site Blood Urea Nitrogen November 27 6:09am 17 mg/dL 11-07 [facility], [address] [place] [id number] Blood Urea Nitrogen August 22, 2019 6:40am 22 mg/dL 11-07 [facility], [address] [place] [address] 28959 Blood Urea Nitrogen June 28, 2019 6:04am 21 mg/dL 11-07 [facility], [address] [place] [id number] Blood Urea Nitrogen January 02 7:27am 20 mg/dL 11-07 [facility], [address] [place] [address] 96335 Sodium Level November 28, 2019 6:09am 144 mmol/L 132-146 [facility], [address] [place] [address] 85957 Sodium Level August 22, 2019 6:40am 142 mmol/L 132-146 [facility], [address] [place] [address] 41864 Sodium Level June 28, 2019 6:04am 144 mmol/L 132-146 [facility], [address] [place] [address] 79675 Sodium Level January 02, 2019 7:27am 142 mmol/L 132-146 [facility], [address] [place] [address] 6[address] Potassium Level November 28, 2019 6:09am 4.6 mmol/L 3.5-5.5 [facility], [address] [place] [address] Potassium Level August 22, 2019 6:40am 5.0 mmol/L 3.5-5.5 [facility], [address] [place] [address] Potassium Level June 28, 2019 6:04am 4.3 mmol/L 3.5-5.5 [facility], [address] [place] [address] Potassium Level January 02, 2019 7:27am 4.6 mmol/L 3.5-5.5 [facility], [address] [place] [id number] Chloride Level November 28, 2019 6:09am 109 mmol/l 99-109 [facility], [address] [place] [address] Chloride Level August 22, 2019 6:40am 107 mmol/l 99-109 [facility], [address] [place] [id number] Chloride Level June 28, 2019 6:04am 107 mmol/l 99-109 [facility], [address] [place] [address] Chloride Level January 02, 2019 7:27am 107 mmol/l 99-109 [facility], [address] [place] [address] 64995 Carbon Dioxide Level November 27 6:09am 29 mmol/l 20-31 [facility], [address] [place] [address] 30716 Carbon Dioxide Level August 22, 2019 6:40am 30 mmol/l 20-31 [facility], [address] [place] [address] 47363 Carbon Dioxide Level June 28, 2019 6:04am 29 mmol/l 20-31 [facility], [address] [place] [address] 87406 Carbon Dioxide Level January 02, 2019 7:27am 28 mmol/l 20-31 [facility], [address] [place] [address] 76178 Anion Gap November 28, 2019 6:09am 11 mmol/l 8-16 [facility], [address] [place] [address] 75991 Anion Gap August 22, 2019 6:40am 10 mmol/l 8-16 [facility], [address] [place] [address] 84658 Anion Gap June 28, 2019 6:04am 12 mmol/l 8-16 [facility], [address] [place] [address] 30974 Anion Gap January 02, 2019 7:27am 12 mmol/l 8-16 [facility], [address] [place] [address] 64983 Glucose Level November 28, 2019 6:09am 118 mg/dL 74-106 [facility], [address] [place] [address] 87035 Glucose Level August 22, 2019 6:40am 129 mg/dL -106 [facility], [address] [place] [address] Glucose Level June 28, 2019 6:04am 122 mg/dL 74-106 [facility], [address] [place] [address] 37950 Glucose Level January 02, 2019 7:27am 119 mg/dL 74-106 [facility], [address] [place] [address] Creatinine November 28, 2019 6:09am 1.2 mg/dL 0.5-1.1 [facility], [address] [place] [address] Creatinine August 22, 2019 6:40am 1.4 mg/dL 0.5-1.1 [facility], [address] [place] [address] Creatinine June 28, 2019 6:04am 1.1 mg/dL 0.5-1.1 [facility], [address] [place] [address] Creatinine January 02, 2019 7:27am 1.1 mg/dL 0.5-1.1 [facility], [address] [place] [address] Glomerular Filtration Rate Calc Oct2019 6:09am 45 ml/min ABOVE 60 [facility], [address] [place] [address] Glomerular Filtration Rate Calc August 22, 2019 6:40am 38 ml/min ABOVE 60 [facility], [address] [place] [address] Glomerular Filtration Rate Calc June 28, 2019 6:04am 50 ml/min ABOVE 60 [facility], [address] [place] [address] Glomerular Filtration Rate Calc Nove 2018 7:27am 50 ml/min ABOVE 60 [facility], [address] [place] [address] Alanine Aminotransferase (ALT/SGPT) November 28, 2019 6:09am 22 U/L 10-49 [facility], [address] [place] [address] Alanine Aminotransferase (ALT/SGPT) June 28, 2019 6:04am 15 U/L 10-49 [facility], [address] [place] [address] Alanine Aminotransferase (ALT/SGPT) January 02, 2019 7:27am 17 U/L 10-49 [facility], [address] [place] [address] Aspartate Amino Transf (AST/SGOT) tober 2019 6:09am 20 U/L 0-33 [facility], [address] [place] [address] Aspartate Amino Transf (AST/SGOT) Ma 2019 6:04am 15 U/L 0-33 [facility], [address] [place] [address] Aspartate Amino Transf (AST/SGOT) No [facility] 2018 7:27am 15 U/L 0-33 [facility], [address] [place] [address] Alkaline Phosphatase November 27 6:09am 107 U/L 45-129 [facility], [address] [place] [address] Alkaline Phosphatase June 28, 2019 6:04am 109 U/L 45-129 [facility], [address] [place] [address] Alkaline Phosphatase January 02, 2019 7:27am 107 U/L 45-129 [facility], [address] [place] [address] Calcium Level November 28, 2019 6:09am 9.5 mg/dL 8.5-10.1 [facility], [address] [place] [address] Calcium Level August 22, 2019 6:40am 9.5 mg/dL 8.5-10.1 [facility], [address] [place] [address] Calcium Level June 28, 2019 6:04am 9.8 mg/dL 8.5-10.1 [facility], [address] [place] [address] Calcium Level January 02, 2019 7:27am 9.2 mg/dL 8.5-10.1 [facility], [address] [place] [address] Total Bilirubin November 28, 2019 6:09am 0.7 mg/dL 0.3-1.2 [facility], [address] [place] [address] Total Bilirubin June 28, 2019 6:04am 0.7 mg/dL 0.3-1.2 [facility], [address] [place] [address] Total Bilirubin January 02, 2019 7:27am 0.6 mg/dL 0.3-1.2 [facility], [address] [place] [address] Albumin November 28, 2019 6:09am 3.8 g/dL 3.2-4.8 [facility], [address] [place] [address] Albumin June 28, 2019 6:04am 4.3 g/dL 3.2-4.8 [facility], [address] [place] [address] 30202 Albumin January 02, 2019 7:27am 3.9 g/dL 3.2-4.8 [facility], [address] [place] [address] Serum Total Protein November 27 6:09am 7.3 g/dL 5.7-8.2 [facility], [address] [place] [address] Serum Total Protein June 28, 2019 6:04am 7.5 g/dL 5.7-8.2 [facility], [address] [place] [address] Serum Total Protein January 02 7:27am 7.2 g/dL 5.7-8.2 [facility], [address] [place] [address] Triglycerides Level November 27 6:09am 102 mg/dL 0-150 [facility], [address] [place] [address] Triglycerides Level June 28, 2019 6:04am 109 mg/dL 0-150 [facility], [address] [place] [address] Triglycerides Level January 02 7:27am 100 mg/dL 0-150 [facility], [address] [place] [address] Cholesterol Level November 28, 2019 6:09a m 150 mg/dL 120-200 [facility], [address] [place] [address] Cholesterol Level June 28, 2019 6:04am 151 mg/dL 120-200 [facility], [address] [place] [address] Cholesterol Level January 02 9 7:27am 156 mg/dL 120-200 [facility], [address] [place] [address] HDL Cholesterol November 28, 2019 6:09am 62 mg/dL HDL Less than 40 mg/dL: Major risk for CHDHDL Greater than 59 mg/dL: Low risk for CHD [facility], [address] [place] [address] HDL Cholesterol June 28, 2019 6:04am 66 mg/dL HDL Less than 40 mg/dL: Major risk for CHDHDL Greater than 59 mg/dL: Low risk for CHD [facility], [address] [address] HDL Cholesterol January 02, 2019 7:27am 59 mg/dL HDL Less than 40 mg/dL: Major risk for CHDHDL Greater than 59 mg/dL: Low risk for CHD [facility], [address] [place] [address] LDL Cholesterol, Calculated November 28, 2019 6:09am 68 mg/dL 0-100 [facility], [address] [place] [address] LDL Cholesterol, Calculated June 6:04am 64 mg/dL 0-100 [facility], [address] [place] [address] LDL Cholesterol, Calculated January 02, 2019 7:27am 77 mg/dL 0-100 [facility], [address] [place] [address] Vitamin D 25-Hydroxy June 28, 2019 6:04am 46.5 ng/mL Vitamin D deficiency has been defined by the [place] of[employer] and an Endocrine Society practice guideline as alevel of serum 25-OH vitamin D less than 20 ng/mL (1,2).The Endocrine Society went on to further define vitamin Dinsufficiency as a level between 21 and 29 ng/mL (2).1. IOM ([place] of [employer]). 2010. Dietary reference intakes for calcium and D. [place]: The National Academies Press.2. Rona MF, Izabel NC, Ezequiel KERR, et al. Evaluation, treatment, and prevention of vitamin D deficiency: an Endocrine Society clinical practice guideline. JCEM. 2010; 96(7):1911-30.Performed at: RN - [facility] [id number] [id number] Director: Yvrose Interiano MD, Phone: [phone] [facility] , [address] [facility] [id number] Hemoglobin A1c November 28, 2019 6:09am 6.4 % 4.0-6.0 The following ranges may be used for interpretation of results: HGBA1C degree of glucose control: Greater than 8%: Action Suggested * Less than 7%: Goal of Diabetic Therapy Less than 6%: Normal Factors such as duration of diabetes, adherence to therapyand the age of the patient should also be considered inassessing the degree of blood glucose control. * High risk of developing chcf complications such asretinopathy, nephropathy, neuropathy, cardiopathy, etc. Some danger of hypoglycemic reaction in Type I diabetics.Some glucose intolerant individuals and "Sub Clinical"diabetics may demonstrate HGBA1C levels in this area. [facility], [address] [place] [address] Hemoglobin A1c June 28, 2019 6:04am 6.5 % 4.0-6.0 Th e following ranges may be used for interpretation of results: HGBA1C degree of glucose control: Greater than 8%: Action Suggested * Less than 7%: Goal of Diabetic Therapy Less than 6%: Normal Factors such as duration of diabetes, adherence to therapyand the age of the patient should also be considered inassessing the degree of blood glucose control. * High risk of developing chcf complications such asretinopathy, nephropathy, neuropathy, cardiopathy, etc. Some danger of hypoglycemic reaction in Type I diabetics.Some glucose intolerant individuals and "Sub Clinical"diabetics may demonstrate HGBA1C levels in this area. [facility], [address] [place] [address] Hemoglobin A1c January 02, 2019 7:27am 6.3 % 4.0-6.0 The following ranges may be used for interpretation of results: HGBA1C degree of glucose control: Greater than 8%: Action Suggested * Less than 7%: Goal of Diabetic Therapy Less than 6%: Normal Factors such as duration of diabetes, adherence to therapyand the age of the patient should also be considered inassessing the degree of blood glucose control. * High risk of developing rat exterminator complications such asretinopathy, nephropathy, neuropathy, cardiopathy, etc. Some danger of hypoglycemic reaction in Type I diabetics.Some glucose intolerant individuals and "Sub Clinical"diabetics may demonstrate HGBA1C levels in this area. [facility], [address] [place] [address] Estimated Average Glucose (eAG) 2019 6:09am 137 mg/dl An A1C of 7% - the goal of diabetic ther apy - is equivalentto an EAG of 154 mg/dl. [facility], [address] [place] [address] Estimated Average Glucose (eAG) June 28, 2019 6:04am 140 mg/dl An A1C of 7% - the goal of diabetic therapy - is equivalentto an EAG of 154 mg/dl. [facility], [address] [facility] [address] Estimated Average Glucose (eAG) Caleb marley 2018 7:27am 134 mg/dl An A1C of 7% - the goal of diabetic ther apy - is equivalentto an EAG of 154 mg/dl. [facility], [address] [facility] [address] Diagnostic Imaging Reports Report Dictated Date/Time Dictated By Status Radiology Report February 14, 2019 1:43p m Jorje Santillan MD completed [address] [place] [address] [phone] NAME SEX PT STATUS ACCOUNT NUMBER KIN CHAMBERS REG REF [id number] ORDERING PHYSICIAN LOCATION MEDICAL RECORD NO. Shirin Hernandez RAD [id number] ATTENDING PHYSICIAN DATE OF DATE OF EXAM/TIME Shirin Hernandez NP 1950 02/14/19 / 1229 TYPE / EXAM Xray Chest 2 view PA/LAT REASON FOR EXAM Persistent cough COMPARISON: 10/29/2014 CTA neck. 04/01/2012 CT chest. FINDINGS: The heart is within normal limits of size. No airspace disease, consolidation or pleural effusion is present. A stent is noted within the right superior aspect of the mediastinum. This is likely within the proximal aspect of the right subclavian artery. Surgical clips are noted within the right upper abdominal quadrant compatible cholecystectomy. Postsurgical changes of the distal aspect of the right clavicle are suspected but this is uncertain. IMPRESSION: No acute cardiopulmonary findings. Reported By Jorje Santillan MD on 02/14/19 1343 Signed By Jorje Santillan MD on 02/14/19 1348 Date Time CC: Jorje Santillan MD; Shirin Hernandez Techn: MORSA Trans Dt/Tm: Trans by: DT Prt Dt/Tm: 6915-2065: Total DLP = 0.00 mGy-cm Fluoroscopy Time (in secs): Radiology Report February 14, 2019 4:35p m Jorje Santillan MD completed [address] [place] [address] [phone] NAME SEX PT STATUS ACCOUNT NUMBER KIN CHAMBERS REG REF [id number] ORDERING PHYSICIAN LOCATION MEDICAL RECORD NO. Shirin Hernandez RAD [id number] ATTENDING PHYSICIAN DATE OF DATE OF EXAM/TIME Shirin Hernandez BARLEY STEEPER 1950 02/14/19 / 1229 TYPE / EXAM HIPS BILAT 2 VIEW W/PELVIS REASON FOR EXAM Bilateral hip pain worsening over 3 months COMPARISON: None FINDINGS: The hip joints are well seated bilaterally. No acute fracture or dislocation is present. The joint spaces are fairly well-preserved. No acute findings are seen within the pelvis or lumbosacral spine. A transitional vertebra is suspected at the lumbosacral junction. IMPRESSION: No acute radiographic findings. Reported By Jorje Santillan MD on 02/14/191634 Signed By Jorje Santillan MD on 02/14/191637 Date Time CC: Jorje Santillan MD; Shirin Hernandez Techn: MORSA Trans Dt/Tm: Trans by: DT Prt Dt/Tm: [id number]: Total DLP = 0.00 mGy-cm Fluoroscopy Time (in secs): Radiology Report February 27, 2019 1:18pm Dieudonne De La Garza MD completed [address] [place] [address] [phone] NAME SEX PT STATUS ACCOUNT NUMBER KIN CHAMBERS REG REF [id number] ORDERING PHYSICIAN LOCATION MEDICAL RECORD NO. Shirin Hernandez CT [id number] ATTENDING PHYSICIAN DATE OF DATE OF EXAM/TIME Shirin Hernandez BARLEY STEEPER 1950 02/24/19 1145 TYPE / EXAM CT Low Dose Lung Ca Screening REASON FOR EXAM Nicotine dependent; Lung CA screen: >30 pack yr TECHNIQUE: Low-dose CT scan of the chest is performed without the use of intravenous contrast for cancer screening in this tobacco user. FINDINGS: A small diaphragmatic hernia is seen on the left. This have been present on the previous study, as well. Adjacent to this hernia, a component of subsegmental atelectasis is seen at the left lung base, posteriorly. Against this background, the possibility of neoplasm in this region cannot be excluded. For that reason, six-month follow-up advised to demonstrate its resolution. A tiny parenchymal scar is seen in the right upper lobe, laterally (3:22). Lungs are otherwise essentially clear. There is no pulmonary nodule or mass definitively seen. A hiatal hernia is seen. A few subcentimeter lymph nodes are seen in the mediastinum, but none of them is pathologically enlarged. No lytic or blastic osseous lesion is seen. The patient is remotely post cholecystectomy. Upper abdominal structures are otherwise grossly unremarkable. IMPRESSION: 1. Small hiatal hernia on the left. Subsegmental atelectasis seen in the adjacent lung, and the left lower lobe, posteriorly. The possibility of a neoplasm cannot be excluded in this region. Six-month follow-up advised to demonstrate its resolution. 2. No definite pulmonary nodule. No focal consolidation or pleural effusion. OVERALL FINAL ASSESSMENT OF FINDINGS LUNG-RADS 3 - Probably benign 6 month follow-up advised. Dose reduction was performed utilizing CARE dose with automated adjustment of the kV and MAS according to patient size, iterative reconstruction, automated exposure control, as well as adaptive dose shielding. Reported By Dieudonne De La Garza MD on 02/27/19 1318 Signed By Dieudonne De La Garza MD on 02/27/19 1326 Date Time CC: Shirin De La Garza MD Techn: MADDY Trans Dt/Tm: Trans by: DT Prt Dt/Tm: : Total DLP = 78.00 mGy-cm : Total Radiation Dose = 1.0140 mSv Lifetime Dose: 1.0140 mSv Radiology Report March 20, 2019 2:36pm Dieudonne De La Garza MD completed [facility] [address] [place] [address] [phone] NAME SEX PT STATUS ACCOUNT NUMBER KIN CHAMBERS REG REF [id number] ORDERING PHYSICIAN LOCATION MEDICAL RECORD NO. Shirin Hernandez MAMMO [id number] ATTENDING PHYSICIAN DATE OF DATE OF EXAM/TIME Shirin Hernandez BARLEY STEEPER 1950 03/20/191141 TYPE / EXAM 3D DIG MAMMO SCREEN BILAT REASON FOR EXAM Screening for breast cancer LAST CLINICAL BREAST EXAM: 12/2018 FIVE YEAR RISK: 1.5% LIFETIME RISK: 5.4% FAMILY HISTORY OF BREAST CARCINOMA: None COMPARISON: December 02, 2015 2D bilateral digital mammogram in the CC and MLO projections was performed with supplemental 3D tomosynthesis of both breasts. FINDINGS: Craniocaudad and oblique lateral views of the breasts were obtained. The breasts are primarily of fat density. Benign type calcification is stable in the upper right breast. There is no dominant mass, suspicious clustered microcalcification or architectural distortion. IMPRESSION: No mammographic evidence of malignancy. Yearly screening recommended. OVERALL FINAL ASSESSMENT OF FINDINGS BI-RADS 2 - Benign findings OVERALL FINAL ASSESSMENT OF THE BREAST COMPOSITION Breast Density Classification: A Description: The breasts are almost entirely fatty. This mammogram was read with the assistance of M-Support[employer]ee, an FDA-approved computer- aided detection system for mammography. Reported By Dieudonne De La Garza MD on 03/20/19 1436 Signed By Dieudonne De La Garza MD on 03/20/19 1437 Date Time CC: Shirin Hernandez; Dieudonne De La Garza MD Techn: PELBU Trans Dt/Tm: Trans by: DT Prt Dt/Tm: : Total DLP = 0.00 mGy-cm : Total Radiation Dose = 0.0000 mSv Lifetime Dose: 1.0140 mSv Radiology Report August 25, 2019 3:35pm Dieudonne De La Garza MD completed [facility] [address] [place] [address] [phone] NAME SEX PT STATUS ACCOUNT NUMBER KIN CHAMBERS REG REF [id number] ORDERING PHYSICIAN LOCATION MEDICAL RECORD NO. Shirin DEVAUGHN Hernandez CT [id number] ATTENDING PHYSICIAN DATE OF DATE OF EXAM/TIME Shirin Hernandez JYOTNSA 1950 08/25/191127 TYPE / EXAM CT Thorax without contrast REASON FOR EXAM Lung cancer screening COMPARISON: None TECHNIQUE: Non-Enhanced Multidetector-Row Chest Computed Tomography images were acquired. 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 Adjacent subsegmental atelectasis that have been seen on previous study has resolved in the interval. There is no focal pulmonary consolidation, mass, or nodule. Pleural Space: No pleural fluid or thickening is present. Heart and Pericardium: The cardiac chambers are normal in size. No pericardial fluid or thickening is present. Mediastinum and Faye: No mediastinal mass is present. No enlarged lymph nodes are present. Thoracic Vessels: No vascular abnormality is present. Osseous Structures and Chest Wall: No pathologic osseous or soft-tissue process is present. Upper Abdomen: No acute pathologic process is present in the imaged portion of the upper abdomen. A hiatal hernia is seen. Additional findings: None. IMPRESSION: 1. Small hiatal hernia. 2. Interval resolution of subsegmental atelectasis that had been seen at the left lung base on the previous study. 3. Small Bochdalek hernia. 4. Lungs essentially clear, without evidence of pulmonary nodule, mass, or focal consolidation. 5. No pleural effusion. Dose reduction was performed utilizing CARE dose with automated adjustment of the kV and MAS according to patient size, iterative reconstruction, automated exposure control, as well as adaptive dose shielding. Reported By Dieudonne De La Garza MD on 08/25/191534 Signed By Dieudonne De La Garza MD on 08/25/191537 Date Time CC: Shirin Hernandez; Dieudonne De La Garza MD Techn: PELBU Trans Dt/Tm: Trans by: DT Prt Dt/Tm: : Total DLP = 286.00 mGy-cm : Total Radiation Dose = 3.7180 mSv Lifetime Dose: 4.7320 mSv Radiology Report September 14, 2019 10:48am Dieudonne De La Garza MD completed [facility] [address] [place] [id number] [phone] NAME SEX PT STATUS ACCOUNT NUMBER KIN CHAMBERS PRE REF [id number] ORDERING PHYSICIAN LOCATION MEDICAL RECORD NO. Shirin Hernandez RAD [id number] ATTENDING PHYSICIAN DATE OF DATE OF EXAM/TIME Shirin Hernandez NP 1950 09/14/191011 TYPE / EXAM Xray UGI w/o KUB-SINGLE CONTRA REASON FOR EXAM Pain with swallowing CLINICAL HISTORY: 68 years of age, Female, . TECHNIQUE: A single-contrast examination was performed using dense and regular barium. Multiple fluoroscopic spot images of the esophagus, stomach, and proximal small bowel were acquired. COMPARISON: There are no prior films available on PACS for comparison. FINDINGS: The marketing services rep radiograph is unremarkable. The patient swallowed contrast without difficulty. The esophagus is structurally normal without intrinsic or extrinsic masses. The esophageal mucosa appears normal. The stomach demonstrates normal distensibility. No mass or ulceration is identified. There is no evidence of gastritis. The duodenal bulb and sweep are unremarkable. Gastroesophageal reflux is demonstrated, and there is a moderately sized hiatal hernia. The mucosal pattern of the small bowel is normal. No masses are identified. IMPRESSION: Gastroesophageal reflux and a moderately sized hiatal hernia. No mucosal abnormality distal esophagus. Reported By Dieudonne De La Garza MD on 09/14/19 1048 Signed By Dieudonne De La Garza MD on 09/14/19 1059 Date Time CC: Shirin Hernandez; Dieudonne De La Garza MD Techn: CUMME Trans Dt/Tm: Trans by: DT Prt Dt/Tm: 4818-3953: Total DLP = 0.00 mGy-cm Fluoroscopy Time (in secs): 153 Health Concerns Health Concerns may be documented in an alternate section. Advance Directives Advance Directive Response Recorded Date/Time Advanced Directive No [facility] Does Patient have a DNR? Yes January 03, 2020 8:17am Healthcare Proxy Yes Nov ember 2019 8:17am Living Will No January 03, 2020 8:17am Chief Complaint and Reason for Visit Chief Complaint E11.9,E78.2 Office visit Cough follow-up PERSISTANT COUGH,BILAT HIP PAIN NICOTINE DEPENDENCE F17.200.F17.210 SCREENING Hip pain follow-up I65.27, E78.2, E11.9, E78.2, E55.9 Diabetes follow-up N28.9 ABN. FINDING OF LUNG,R91.8,F17.200,F17.210 Chronic kidney disease DYSPHAGIA E11.9,E78.2,N18.9 Diabetes follow-up Medicare Annual Wellness subsequent Reason for Visit Breast cancer scree ishan Bronchitis Actinic keratoses Cough Chronic renal impairment Encounters Encounter Location(s) [place] [facility]/Admit Date Discharge/Depart Date Provider(s) Registered Referred [facility]Labor[facility] January 02, 2019 7:16am Shirin Hernandez Departed Physician/Provider Office Visit [facility] January 03, 2019 9:48am January 03, 2019 10:26am Shirin Hernandez Departed Physician/Provider Office Visit [facility] February 14, 2019 11:20am February 14, 2019 11:53am Shirin Hernandez Registered Referred [facility]Radiology February 14, 2019 11:54am Shirin Hernandez Registered Referred [facility]-Cat Scan February 24, 2019 11:14am Shirin Hernandez Registered Referred [facility]Mammography March 20, 2019 11:00am Shirin Hernandez Departed Physician/Provider Office Visit [facility] March 21, 2019 8:50am March 21, 2019 9:19am Shirin ceballos Registered Referred [facility] June 28, 2019 5:45am Shirin Hernandez Departed Physician/Provider Office Visit [facility] July 04, 2019 8:54am July 04, 2019 9:24am Shirin Hernandez Registered Referred [facility] August 22, 2019 6:02am Chasity Latham MD Registered Referred [facility]Cat Scan August 25, 2019 10:18am Shirin Hernandez Departed Physician/Provider Office Visit [facility] August 30, 2019 8:57am August 30, 2019 9:37am Shirin Hernandez Registered Referred [facility] September 14, 2019 10:39am Shirin Hernandez Registered [facility] [facility] November 28, 2019 6:00am Shirin Hernandez Departed Physician/Provider Office Visit [facility] November 29, 2019 7:49am November 29, 2019 8:17am Shirin ceballos Departed Physician/Provider Office Visit [facility] January 03, 2020 8:12am January 03, 2020 8:50am Shirin Hernandez Recent Diagnosis Onset Date Breast cancer screening Bronchitis Actinic keratoses Cough Chronic renal impairment Assessments Diagnosis Onset Date Res olution Status Breast cancer screening resolved Bronchitis resolved Actinic keratoses resolved Cough resolved Chronic renal impairment resolved Family History Relationship Condition A ge at Onset Recorded Date/Time Not Specified Diabetes mellitus Unknown Functional Status No Functional Status information available Goals Goals may be documented in an alternate section. Immunizations Immunization Event Date Not Given Reason Dose Number Director Of Valuation Lot Number Vaccine Information Statement (VIS) Deta il influenza vaccine, inactivated Novem laura 2018 [id number] 31 influenza vaccine, inactivated Octob er 2019 [id number] Mental Status No Mental Status Information Available Medical Equipment No Medical Equipment Information available Insurance Providers Guarantor [employer] Address [address] [facility] [id number] Contact Info. Home Phone: Payer Policy Id Coverage Id Subscriber's Name Subscriber Id Effective Date Expiration Date BC/BS [facility] [id number] [employer] [id number] 2015 [employer] [id number] [employer] [id number] 2017 [facility] FEE FOR SERVICE [id number] [employer] [id number] Self Pay Self N/A [employer] [id number] [employer] [id number] [facility] [id number] [employer] [id number] Plan of Treatment Labs reviewed. Doing well on medication changes. Diet and exercise education provided. Resolved. I will order chest xray. Consider continued abx if necessary. Push fluids. Follow up in 1 week if not better. Healthy 68 year old female. Medication compliant. Labs reviewed and look great. Mammogram ordered to be completed before the end of the year. Refuses colonoscopy and cologuard. Future Tests Future scheduled test information is unavailable Pending Tests Pending diagnostic test information is unavailable Future Visits Future appointment information is unavailable Referrals to Other Providers Referral information is unavailable Future Procedures Future procedure information is unavailable Future Medications Future medication information is unavailable Patient Instructions Type 2 Diabetes in Adults: New Diagnosis (GEN) DASH Eating Plan (GEN) Hypertension (GEN) Social History Smoking Status Status Date of Observation Former smoker January 03, 2020 8: 17am Observation Status Date of Observation Not August 28, 2013 Observation Status Observation Response Kevin e of Response Smoking Status Former smoker January 03, 2020 8:17am Assigned Sex Female Vital Signs Vital Reading Result Ref erence Range Collection Date/Time Height 61.5 [in_i] January 03, 2019 9:53am Weight 163.00 [lb_av] January 03, 2019 9:53am Heart Rate 78 /min 60-100 January 03, 2019 9:53am Respiratory rate 16 /min 12-January 03, 2019 9:53am Oxygen saturation by Pulse oximetry 96 % 95- 100 January 03, 2019 9:53am BP Systolic 136 mm[Hg] January 03, 2019 9:53am BP Diastolic 70 mm[Hg] January 03, 2019 9:53am BMI (Body Mass Index) 30.2 kg/m2 January 03, 2019 9:53am Body Temperature 98.6 [degF] 97.6-99.5 February 14, 2019 11:31am Heart Rate 78 /min 60-100 February 14, 2019 11:31am Respiratory rate 16 /min 12-February 14, 2019 11:31am Oxygen saturation by Pulse oximetry 98 % 95- 100 February 14, 2019 11:31am BP Systolic 124 mm[Hg] February 14, 2019 11:31am BP Diastolic 66 mm[Hg] February 14, 2019 11:31am Height 61.5 [in_i] March 21, 2019 8:52am Weight 160.00 [lb_av] March 21, 2019 8:52am BMI (Body Mass Index) 29.7 kg/m2 March 21, 2019 8:52am Height 61.5 [in_i] July 04, 2019 9:56am Weight 174.00 [lb_av] July 04, 2019 9:56am Body Temperature 97.9 [degF] 97.6-99.5 July 04, 2019 9:56am Heart Rate 67 /min 60-100 July 04, 2019 9:56am Respiratory rate 18 /min -July 04, 2019 9:56am Oxygen saturation by Pulse oximetry 97 % 95- 100 July 04, 2019 9:56am BP Systolic 138 mm[Hg] July 04, 2019 9:56am BP Diastolic 82 mm[Hg] July 04, 2019 9:56am BMI (Body Mass Index) 32.3 kg/m2 July 04, 2019 9:56am Weight 168.00 [lb_av] August 30, 2019 10:13am Body Temperature 98.4 [degF] 97.6-99.5 August 30, 2019 10:13am Heart Rate 74 /min 60-100 August 30, 2019 10:13am Respiratory rate 16 /min 12-August 30, 2019 10:13am Oxygen saturation by Pulse oximetry 96 % 95- 100 August 30, 2019 10:13am BP Systolic 120 mm[Hg] August 30, 2019 10:13am BP Diastolic 60 mm[Hg] August 30, 2019 10:13am Height 61.5 [in_i] November 29, 2019 8:53am Weight 170.00 [lb_av] November 29, 2019 8:53am Body Temperature 97.6 [degF] 97.6-99.5 November 29, 2019 8:53am Heart Rate 68 /min 60-100 November 29, 2019 8:53am Respiratory rate 18 /min 12-November 29, 2019 8:53am Oxygen saturation by Pulse oximetry 97 % 95- 100 November 29, 2019 8:53am BP Systolic 134 mm[Hg] November 29, 2019 8:53am BP Diastolic 78 mm[Hg] November 29, 2019 8:53am BMI (Body Mass Index) 31.6 kg/m2 November 29, 2019 8:53am Height 62 [in_i] January 03, 2020 8:20am Weight 176.00 [lb_av] January 03, 2020 8:20am Body Temperature 97.9 [degF] 97.6-99.5 January 03, 2020 8:20am Heart Rate 65 /min 60-100 January 03, 2020 8:20am Respiratory rate 16 /min 12-24 January 03, 2020 8:20am Oxygen saturation by Pulse oximetry 97 % 95- 100 January 03, 2020 8:20am BP Systolic 130 mm[Hg] January 03, 2020 8:20am BP Diastolic 76 mm[Hg] January 03, 2020 8:20am BMI (Body Mass Index) 32.1 kg/m2 January 03, 2020 8:20am
--- OUTSIDE RECORDS SUMMARY | 2020-04-02 08:13 | CCD ---
Author Author [facility] Address Unknown Phone Unavailable Care Team Providers Care Lay Health Advocate Name Role Phone Yolette Latham MD Unavailable Unavailable Yolette Latham MD Unavailable Unavailable Yolette Latham MD Unavailable Unavailable Yolette Latham MD Unavailable Unavailable Yolette Latham MD Unavailable Unavailable Yolette Latham MD Unavailable Unavailable Yolette Latham MD Unavailable Unavailable Yolette Latham MD Unavailable Unavailable Yolette Latham MD Unavailable Unavailable Yolette Latham MD Unavailable Unavailable Yolette Latham MD Unavailable Unavailable Yolette Latham MD Unavailable Unavailable Yolette Latham MD Unavailable Unavailable Yolette Latham MD Unavailable Unavailable Yolette Latham MD Unavailable Unavailable Yolette Latham MD Unavailable Unavailable Yolette Latham MD Unavailable Unavailable Yolette Latham MD Unavailable Unavailable Yolette Latham MD Unavailable Unavailable Yolette Latham MD Unavailable Unavailable Yolette Latham MD Unavailable Unavailable Yolette Latham MD Unavailable Unavailable Yolette Latham MD Unavailable Unavailable Yolette Latham MD Unavailable Unavailable Yolette Latham MD Unavailable Unavailable Yolette Latham MD Unavailable Unavailable Yolette Latham MD Unavailable Unavailable Yolette Latham MD Unavailable Unavailable Yolette Latham MD Unavailable Unavailable Yolette Latham MD Unavailable Unavailable Yolette Latham MD Unavailable Unavailable Yolette Latham MD Unavailable Unavailable Yolette Latham MD Unavailable Unavailable Yolette Latham MD Unavailable Unavailable Yolette Latham MD Unavailable Unavailable Yolette Latham MD Unavailable Unavailable Yolette Latham MD Unavailable Unavailable Yolette Latham MD Unavailable Unavailable Yolette Latham MD Unavailable Unavailable Yolette Latham MD Unavailable Unavailable Yolette Latham MD Unavailable Unavailable Yolette Latham MD Unavailable Unavailable Yolette Latham MD Unavailable Unavailable Yolette Latham MD Unavailable Unavailable Yolette Latham MD Unavailable Unavailable Yolette Latham MD Unavailable Unavailable Yolette Latham MD Unavailable Unavailable Yolette Latham MD Unavailable Unavailable Yolette Latham MD Unavailable Unavailable Yolette Latham MD Unavailable Unavailable Yolette Latham MD Unavailable Unavailable Yolette Latham MD Unavailable Unavailable Yolette Latham MD Unavailable Unavailable Yolette Latham MD Unavailable Unavailable Yolette Latham MD Unavailable Unavailable Yolette Latham MD Unavailable Unavailable Yolette Latham MD Unavailable Unavailable Yolette Latham MD Unavailable Unavailable Yolette Latham MD Unavailable Unavailable Yolette Latham MD Unavailable Unavailable Yolette Latham MD Unavailable Unavailable Yolette Latham MD Unavailable Unavailable Yolette Latham MD Unavailable Unavailable Yolette Latham MD Unavailable Unavailable Yolette Latham MD Unavailable Unavailable Yolette Latham MD Unavailable Unavailable Yolette Latham MD Unavailable Unavailable Yolette Latham MD Unavailable Unavailable Yolette Latham MD Unavailable Unavailable Yolette Latham MD Unavailable Unavailable Yolette Latham MD Unavailable Unavailable Yolette Latham MD Unavailable Unavailable Yolette Latham MD Unavailable Unavailable Yolette Latham MD Unavailable Unavailable Yolette Latham MD Unavailable Unavailable Yolette Latham MD Unavailable Unavailable Yolette Latham MD Unavailable Unavailable Yolette Latham MD Unavailable Unavailable Yolette Latham MD Unavailable Unavailable Yolette Latham MD Unavailable Unavailable Yolette Latham MD Unavailable Unavailable Yolette Latham MD Unavailable Unavailable Yolette Lathma MD Unavailable Unavailable Jackeline Vazquez MD Unavailable Unavailable Jackeline Vazquez MD Unavailable Unavailable Jackeline Vazquez MD Unavailable Unavailable Jackeline Vazquez MD Unavailable Unavailable Jackeline Vazquez MD Unavailable Unavailable Jackeline Vazquez MD Unavailable Unavailable Jackeline Vazquez MD Unavailable Unavailable Jackeline Vazquez MD Unavailable Unavailable Jackeline Vazquez MD Unavailable Unavailable Jackeline Vazquez MD Unavailable Unavailable Jackeline Vazquez MD Unavailable Unavailable Jackeline Vazquez MD Unavailable Unavailable Jackeline Vazquez MD Unavailable Unavailable Jackeline Vazquez MD Unavailable Unavailable Jackeline Vazquez MD Unavailable Unavailable Jackeline Vazquez MD Unavailable Unavailable Jackeline Vazquez MD Unavailable Unavailable Jackeline Vazquez MD Unavailable Unavailable Jackeline Vazquez MD Unavailable Unavailable Jackeline Vazquez MD Unavailable Unavailable Jackeline Vazquez MD Unavailable Unavailable Jackeline Vazquez MD Unavailable Unavailable Jackeline Vazquez MD Unavailable Unavailable Jackeline Vazquez MD Unavailable Unavailable Jackeline Vazquez MD Unavailable Unavailable Jackeline Vazquez MD Unavailable Unavailable Jackeline Vazquez MD Unavailable Unavailable Jackeline Vazquez MD Unavailable Unavailable Jackeline Vazquez MD Unavailable Unavailable Jackeline Vazquez MD Unavailable Unavailable Jackeline Vazquez MD Unavailable Unavailable Jackeline Vazquez MD Unavailable Unavailable George, S Sarmad MD Unavailable Unavailable George, S Sarmad MD Unavailable Unavailable George, S Sarmad MD Unavailable Unavailable George, S Sarmad MD Unavailable Unavailable George, S Sarmad MD Unavailable Unavailable George, S Sarmad MD Unavailable Unavailable George, S Sarmad MD Unavailable Unavailable George, S Sarmad MD Unavailable Unavailable George, S Sarmad MD Unavailable Unavailable George, S Sarmad MD Unavailable Unavailable George, S Sarmad MD Unavailable Unavailable George, S Sarmad MD Unavailable Unavailable George, S Sarmad MD Unavailable Unavailable George, S Sarmad MD Unavailable Unavailable George, S Sarmad MD Unavailable Unavailable George, S Sarmad MD Unavailable Unavailable George, S Sarmad MD Unavailable Unavailable George, S Sarmad MD Unavailable Unavailable NON, PHYSICIAN STAFF Unavailable Unavailable Phil Selby MD Unavailable Unavailable BalPhil sanchez MD Unavailable Unavailable BalPhil sanchez MD Unavailable Unavailable BalPhil sanchez MD Unavailable Unavailable BalPhil sanchez MD Unavailable Unavailable BalPhil sanchez MD Unavailable Unavailable BalPhil sanchez MD Unavailable Unavailable BalPhil sanchez MD Unavailable Unavailable BalPhil sanchez MD Unavailable Unavailable BalPhil sanchez MD Unavailable Unavailable BalPhil MD Unavailable Unavailable BalPhil MD Unavailable Unavailable BalPhil MD Unavailable Unavailable BalPhil MD Unavailable Unavailable BalPhil sanchez MD Unavailable Unavailable BalPhil sanchez MD Unavailable Unavailable BalPhil sanchez MD Unavailable Unavailable BalPhil sanchez MD Unavailable Unavailable BalPhil MD Unavailable Unavailable BalPhil sanchez MD Unavailable Unavailable AblPhil sanchez MD Unavailable Unavailable BalPhil sanchez MD Unavailable Unavailable BalPhil sanchez MD Unavailable Unavailable BalPhil sanchez MD Unavailable Unavailable BalPhil sanchez MD Unavailable Unavailable BalPhil MD Unavailable Unavailable BalPhil MD Unavailable Unavailable BalPhil MD Unavailable Unavailable BalPhil MD Unavailable Unavailable BalPhil MD Unavailable Unavailable David, A Shirin PACKAGE DYEING MACHINE OPERATOR Unavailable Unavailable David, A Shirin PACKAGE DYEING MACHINE OPERATOR Unavailable Unavailable David, A Shirin PACKAGE DYEING MACHINE OPERATOR Unavailable Unavailable Advid, A Shirin PACKAGE DYEING MACHINE OPERATOR Unavailable Unavailable David, A Shirin PACKAGE DYEING MACHINE OPERATOR Unavailable Unavailable David, A Shirin PACKAGE DYEING MACHINE OPERATOR Unavailable Unavailable David, A Shirin PACKAGE DYEING MACHINE OPERATOR Unavailable Unavailable David, A Shirin PACKAGE DYEING MACHINE OPERATOR Unavailable Unavailable David, A Shirin PACKAGE DYEING MACHINE OPERATOR Unavailable Unavailable David, A Shirin PACKAGE DYEING MACHINE OPERATOR Unavailable Unavailable David, A Shirin PACKAGE DYEING MACHINE OPERATOR Unavailable Unavailable David, A Shirin PACKAGE DYEING MACHINE OPERATOR Unavailable Unavailable David, A Shirin PACKAGE DYEING MACHINE OPERATOR Unavailable Unavailable David, A Shirin PACKAGE DYEING MACHINE OPERATOR Unavailable Unavailable David, A Shirin PACKAGE DYEING MACHINE OPERATOR Unavailable Unavailable David, A Shirin PACKAGE DYEING MACHINE OPERATOR Unavailable Unavailable David, A Shirin PACKAGE DYEING MACHINE OPERATOR Unavailable Unavailable David, A Shirin PACKAGE DYEING MACHINE OPERATOR Unavailable Unavailable David, A Shirin PACKAGE DYEING MACHINE OPERATOR Unavailable Unavailable David, A Shirin PACKAGE DYEING MACHINE OPERATOR Unavailable Unavailable David, A Shirin PACKAGE DYEING MACHINE OPERATOR Unavailable Unavailable David, A Shirin PACKAGE DYEING MACHINE OPERATOR Unavailable Unavailable David, A Shirin PACKAGE DYEING MACHINE OPERATOR Unavailable Unavailable David, A Shirin PACKAGE DYEING MACHINE OPERATOR Unavailable Unavailable David, A Shirin PACKAGE DYEING MACHINE OPERATOR Unavailable Unavailable David, A Shirin PACKAGE DYEING MACHINE OPERATOR Unavailable Unavailable David, A Shirin PACKAGE DYEING MACHINE OPERATOR Unavailable Unavailable David, A Shirin PACKAGE DYEING MACHINE OPERATOR Unavailable Unavailable David, A Shirin PACKAGE DYEING MACHINE OPERATOR Unavailable Unavailable David, A Shirin PACKAGE DYEING MACHINE OPERATOR Unavailable Unavailable David, A Shirin PACKAGE DYEING MACHINE OPERATOR Unavailable Unavailable David, A Shirin PACKAGE DYEING MACHINE OPERATOR Unavailable Unavailable David, A Shirin PACKAGE DYEING MACHINE OPERATOR Unavailable Unavailable David, A Shirin PACKAGE DYEING MACHINE OPERATOR Unavailable Unavailable David, A Shirin PACKAGE DYEING MACHINE OPERATOR Unavailable Unavailable David, A Shirin PACKAGE DYEING MACHINE OPERATOR Unavailable Unavailable David, A Shirin PACKAGE DYEING MACHINE OPERATOR Unavailable Unavailable David, A Shirin PACKAGE DYEING MACHINE OPERATOR Unavailable Unavailable Re-disclosure Warning The records that you are about to access may contain information from federally-assisted alcohol or drug abuse programs. If such information is present, then the following federally mandated warning applies: This information has been disclosed to you from records protected by federal confidentiality rules (42 CFR part 2). The federal rules prohibit you from making any further disclosure of this information unless further disclosure is expressly permitted by the written consent of the person to whom it pertains or as otherwise permitted by 42 CFR part 2. A general authorization for the release of medical or other information is NOT sufficient for this purpose. The Federal rules restrict any use of the information to criminally investigate or prosecute any alcohol or drug abuse patient.The records that you are about to access may contain highly sensitive health information, the redisclosure of which is protected by Article 27-F of the [facility] Public Health law. If you continue you may have access to information: Regarding HIV / AIDS; Provided by facilities licensed or operated by the [facility] Office of Mental Health; or Provided by the [facility] Office for People With Developmental Disabilities. If such information is present, then the following [facility] mandated warning applies: This information has been disclosed to you from confidential records which are protected by state law. State law prohibits you from making any further disclosure of this information without the specific written consent of the person to whom it pertains, or as otherwise permitted by law. Any unauthorized further disclosure in violation of state law may result in a fine or snf sentence or both. A general authorization for the release of medical or other information is NOT sufficient authorization for further disc losure. Allergies and Adverse Reactions Type Description Substance Reaction Status Data Source(s ) No Known Environmental Allergies No Known Environmental [facility] No Known Food Allergies No Known Food Allergies [facility] Family History Family Member Name Family Member Gender Family Member Status Date o f Status Description Data Source(s) Unknown Condition [facility] Unknown Condition [facility] Unknown Condition [facility] Unknown Condition [facility] Unknown Condition [facility] Unknown Condition [facility] Encounters Encounter Providers Location Date Indications Data Source(s ) Outpatient Attender: Sarmad Vazquez MD Main Office 01/16/2020 08:45:00 AM EST [facility] Outpatient Attender: Shirin Hernandez NPReferrer: Shirin vasquez NP 01/03/2020 08:12:00 AM EST - 01/03/2020 08:50:00 AM EST [facility] Outpatient Attender: Shirin Hernandez NPReferrer: Shirin vasquez NP 11/29/2019 08:49:00 AM EDT - 11/29/2019 09:17:00 AM EDT [facility] Outpatient Attender: Shirin Hernandez NP 11/28/2019 07: 00:00 AM EDT E11.9,E78.2,N18.9 [facility] E11.9,E78.2,N18.9 Outpatient Attender: Phil Selby MDConsultant: STAFF NON 11/15/2019 06:30:00 AM EDT - 11/15/2019 09:10:00 AM EDT [facility] Patient discharged. Outpatient Attender: Phil Selby MDConsultant: STAFF NON 11/08/2019 06:45:00 AM EDT - 11/08/2019 09:35:00 AM EDT [facility] Patient discharged. Outpatient Attender: Sarmad Vazquez MD Main Office 10/31/2019 10:00:00 AM EDT [facility]) Preadmit Attender: Shirin Hernandez NP 09/14/2019 09:00:00 AM EDT DYSPHAGIA [facility] DYSPHAGIA Outpatient Attender: Shirin Hernandez NPReferrer: Shirin vasquez NP 08/30/2019 09:57:00 AM EDT - 08/30/2019 10:37:00 AM EDT [facility] Outpatient Attender: Shirin Hernandez NP 08/25/2019 11: 18:00 AM EDT ABN. FINDING OF LUNG,R91.8,F17.200,F17.210 [facility] ABN. FINDING OF LUNG,R91.8,F17.200,F17.2 10 Outpatient Attender: Chasity Latham MD 08/22/2019 07:02:0 0 AM EDT N28.9 [facility] N28.9 Outpatient Attender: Shirin Hernandez NPReferrer: Shirin vasquez NP 07/04/2019 09:54:00 AM EDT - 07/04/2019 10:24:00 AM EDT [facility] Outpatient Attender: Shirin Hernandez NP 06/28/2019 06: 45:00 AM EDT I65.27, E78.2, E11.9, E78.2, E55.9 [facility] I65.27, E78.2, E11.9, E78.2, E55.9 Outpatient Attender: Shirin Hernandez NPReferrer: Shirin vasquez NP 03/21/2019 08:50:00 AM EST - 03/21/2019 09:19:00 AM EST [facility] Outpatient Attender: Shirin Hernandez NP 03/20/2019 11:00:00 AM EST SCREENING [facility] SCREENING Outpatient Attender: Shirin Hernandez NP 02/24/2019 11: 14:00 AM EST NICOTINE DEPENDENCE [id number] [facility] NICOTINE DEPENDENCE [id number] Outpatient Attender: Shirin Hernandez PACKAGE DYEING MACHINE OPERATOR 02/14/2019 11: 54:00 AM EST PERSISTANT COUGH,BILAT HIP PAIN [facility] PERSISTANT COUGH,BILAT HIP PAIN Outpatient Attender: Shirin Hernandez NPReferrer: Shirin vasquez NP 02/14/2019 11:20:00 AM EST - 02/14/2019 11:53:00 AM EST [facility] Immunizations Vaccine Date Status Description Data Source(s) COVID-19 VACCINE, [id number], LNP-S (MODERNA)/PF 03/30/2020 1 2:00:00 AM EST completed [facility] IIV3. This is one of two codes replacing CVX 15, which is being retired. 11/29/2019 12:00:00 AM EDT completed influenza vaccine, inactivated [facility] Medications Medication Brand Name Start Date Product Form Dose Route Admi nistrative Instructions Pharmacy Instructions Status Indications Reaction Description Data Source(s) Rosuvastatin calcium 20 MG Oral Tablet ROSUVASTATIN CALCIUM 03/18/2020 12:00:00 AM EST tablet 90 TAKE ONE TABLET BY MOUTH AT BEDTIME TAKE ONE TABLET BY MOUTH AT BEDTIME SOLD: 03/22/2020 [facility] Ketoconazole 20 MG/ML Medicated Shampoo KETOCONAZOLE 03/12/19 21 12:00:00 AM EST shampoo 120 APPLY SHAMPOO DAILY UNTIL CLEAR AND THEN 2 TO 3 TIMES A WEEK FOR MAINTENANCE APPLY SHAMPOO DAILY UNTIL CLEAR AND THEN 2 TO 3 TIMES A WEEK FOR MAINTENANCE SOLD: 03/17/2020 [facility] 1 % 03/04/2020 12:00:00 AM EST drops,suspension 10 INSTILL 1 DROP INTO BOTH EYES FIVE TIMES A DAY DIRECTED INSTILL 1 DROP INTO BOTH EYES FIVE TIMES A DAY DIRECTED SOLD: 03/07/2020 [facility] 0.5 % 02/27/2020 12:00:00 AM EST drops 5 INSTILL 1 DROP IN EACH EYE 4 TIMES A DAY DIRECTED INSTILL 1 DROP IN EACH EYE 4 TIMES A DAY DIRECTED S OLD: 02/29/2020 [facility] 1 % 02/26/2020 12:00:00 AM EST drops,suspension 5 INSTILL 1 DROP IN EACH EYE 5 TIMES A DAY DIRECTED INSTILL 1 DROP IN EACH EYE 5 TIMES A DAY DIRECTED SOLD: 02/27/2020 [facility] 0.5 % 01/30/2020 12:00:00 AM EST drops 5 INSTILLE 1 DROP INTO BOTH EYES FOUR TIMES A DAY DIRECTED INSTILLE 1 DROP INTO BOTH EYES FOUR TIME S A DAY DIRECTED SOLD: 02/19/2020 [facility] 0.5 % 01/30/2020 12:00:00 AM EST drops 5 INSTILLE 1 DROP INTO BOTH EYES FOUR TIMES A DAY DIRECTED INSTILLE 1 DROP INTO BOTH EYES FOUR TIME S A DAY DIRECTED SOLD: 02/19/2020 [facility] 1 % 01/30/2020 12:00:00 AM EST drops,suspension 10 INSTILL 1 DROP INTO BOTH EYES FIVE TIMES A DAY DIRECTED INSTILL 1 DROP INTO BOTH EYES FIVE TIMES A DAY DIRECTED SOLD: 01/31/2020 [facility] 0.2 % 01/09/2020 12:00:00 AM EST drops 10 INSTILL 1 DROP IN EACH EYE TWO TIMES A DAY INSTILL 1 DROP IN EACH EYE TWO TIMES A DAY SOLD: 01/10/2020 [facility] 0.005 % 12/30/2019 12:00:00 AM EST drops 7 INSTILL 1 DROP IN EACH EYE ONCE DAILY AT BEDTIME INSTILL 1 DROP IN EACH EYE ONCE DAILY AT BEDTIME SOLD: 12/30/2019 [facility] 1 % 12/17/2019 12:00:00 AM EDT drops,suspension 5 INSTILL 1 DROP IN THE LEFT EYE FOUR TIMES A DAY DIRECTED INSTILL 1 DROP IN THE LEFT EYE FOUR TIME S A DAY DIRECTED SOLD: 12/17/2019 [facility] 5 mg/gram (0.5 %) 12/07/2019 12:00:00 AM EDT ointment 3 APPLY A SMALL AMOUNT INTO BOTH EYES AT BEDTIME DIRECTED APPLY A SMALL AMOUNT INTO BOTH EYES AT BEDTIME DIRECTED SOLD: 12/07/2019 [facility] prednisolone acetate 10 MG/ML Ophthalmic Suspension Pr ednisolone Acetate Prednisolone Acetate 11/29/2019 08:56:31 AM EDT co mpleted [facility] Sucralfate 1000 MG Oral Tablet Sucralfate 11/29/2019 08:56:19 AM EDT completed [facility] Omeprazole 40 MG Delayed Release Oral Capsule Omeprazole 11/29/2019 08:56:08 AM EDT completed [facility] Afluria Qd (3yr up)(PF) (flu vac [id number] 36mos up(P F)) 11/29/2019 08:49:30 AM EDT 60 MCG completed [facility] 1 % 11/29/2019 12:00:00 AM EDT drops,suspension 5 INSTILL ONE DROP INTO THE LEFT EYE FOUR TIMES A DAY DIRECTED INSTILL ONE DROP INTO THE LEFT EYE FOUR TIMES A DAY DIRECTED SOLD: 11/29/2019 [facility] 1 % 11/16/2019 12:00:00 AM EDT drops,suspension 5 INSTILL 1 DROP IN THE RIGHT EYE EVERY 2 HOURS WHILE AWAKE DIRECTED INSTILL 1 DROP IN THE RIGHT EYE EVERY 2 HOURS WHILE AWAKE DIRECTED SOLD: 11/18/2019 [facility] 22.3-6.8 mg/mL 11/12/2019 12:00:00 AM EDT drops 10 INSTILL 1 DROP IN THE RIGHT EYE TWO TIMES A DAY DIRECTED INSTILL 1 DROP IN THE RIGHT EYE TWO TIME S A DAY DIRECTED SOLD: 11/12/2019 [facility] 1 gram 10/31/2019 12:00:00 AM EDT tablet 60 TAKE ONE TABLET BY MOUTH TWICE A DAY BEFORE MEALS TAKE ONE TABLET BY MOUTH TWICE A DAY BEFORE MEALS SOLD : 10/31/2019 [facility] 40 mg 10/31/2019 12:00:00 AM EDT capsule,delayed release (DR/EC) 180 TAKE ONE CAPSULE BY MOUTH TWICE A DAY BEFORE BREAKFAST AND DINNER TAKE ONE CAPSULE BY MOUTH TWICE A DAY BEFORE BREAKFAST AND DINNER SOLD: 10/31/2019 [facility] Sucralfate 1000 MG Oral Tablet [Carafate] Carafate 10/31/2019 1 2:00:00 AM EDT ORAL active [facility] Omeprazole 40 MG Delayed Release Oral Capsule Omeprazole 10/31/2019 12:00:00 AM EDT ORAL active [facility] ([facility]) 1 % 10/09/2019 12:00:00 AM EDT drops,suspension 5 INSTILL ONE DROP INTO EACH EYE FOUR TIMES A DAY DIRECTED INSTILL ONE DROP INTO EACH EYE FOUR TIME S A DAY DIRECTED SOLD: 10/09/2019 [facility] 24 HR Glipizide 2.5 MG Extended Release Oral Tablet Glipizid e 09/26/2019 03:26:54 PM EDT 2.5 MG active [facility] 2.5 mg 09/26/2019 12:00:00 AM EDT tablet extended release 24hr 90 TAKE ONE TABLET BY MOUTH EVERY DAY TAKE ONE TABLET BY MOUTH EVERY DAY SOLD: 09/26/2019 [facility] 2.5 mg 09/26/2019 12:00:00 AM EDT tablet extended release 24hr 90 TAKE ONE TABLET BY MOUTH EVERY DAY TAKE ONE TABLET BY MOUTH EVERY DAY SOLD: 12/22/2019 [facility] 2.5 mg 09/26/2019 12:00:00 AM EDT tablet extended release 24hr 90 TAKE ONE TABLET BY MOUTH EVERY DAY TAKE ONE TABLET BY MOUTH EVERY DAY SOLD: 03/22/2020 [facility] Metformin hydrochloride 500 MG Oral Tablet Metformin 09/19 01:59:49 PM EDT 500 MG active [facility] 24 HR Glipizide 2.5 MG Extended Release Oral Tablet Glipizid e 08/30/2019 10:26:11 AM EDT 2.5 MG active [facility] 24 HR Glipizide 2.5 MG Extended Release Oral Tablet Glipizid e 08/30/2019 10:26:11 AM EDT 2.5 MG completed [facility] Brimonidine 08/30/2019 10:11:36 AM EDT active [facility] Brimonidine 08/30/2019 10:11:36 AM EDT active [facility] Metformin hydrochloride 500 MG Oral Tablet Metformin 08/29 10:09:51 AM EDT 0 completed [facility] Metformin hydrochloride 500 MG Oral Tablet Metformin 08/29 10:09:51 AM EDT 0 [facility] 2.5 mg 08/30/2019 12:00:00 AM EDT tablet extended release 24hr 30 TAKE ONE TABLET BY MOUTH EVERY DAY TAKE ONE TABLET BY MOUTH EVERY DAY SOLD: 08/30/2019 [facility] 500 mg 06/23/2019 12:00:00 AM EDT tablet 180 TAKE ONE TABLET BY MOUTH TWICE A DAY TAKE ONE TABLET BY MOUTH TWICE A DAY SOLD: 06/27/2019 [facility] Metformin hydrochloride 500 MG Oral Tablet Metformin 06/21 09:03:52 AM EDT 0 [facility] Metformin hydrochloride 500 MG Oral Tablet Metformin 06/21 09:03:52 AM EDT 0 completed [facility] Metformin hydrochloride 500 MG Oral Tablet Metformin 06/21 09:03:52 AM EDT 0 [facility] 0.2 % 05/31/2019 12:00:00 AM EDT drops 5 INSTILL 1 DROP IN THE RIGHT EYE TWO TIMES A DAY INSTILL 1 DROP IN THE RIGHT EYE TWO TIMES A DAY SOLD: 11/10/2019 [facility] 0.2 % 05/31/2019 12:00:00 AM EDT drops 5 INSTILL 1 DROP IN THE RIGHT EYE TWO TIMES A DAY INSTILL 1 DROP IN THE RIGHT EYE TWO TIMES A DAY SOLD: 12/14/2019 [facility] 0.2 % 05/31/2019 12:00:00 AM EDT drops 5 INSTILL 1 DROP IN THE RIGHT EYE TWO TIMES A DAY INSTILL 1 DROP IN THE RIGHT EYE TWO TIMES A DAY SOLD: 08/03/2019 [facility] 0.2 % 05/31/2019 12:00:00 AM EDT drops 5 INSTILL 1 DROP IN THE RIGHT EYE TWO TIMES A DAY INSTILL 1 DROP IN THE RIGHT EYE TWO TIMES A DAY SOLD: 05/31/2019 [facility] Metformin hydrochloride 500 MG Oral Tablet Metformin 04/04 11:33:57 AM EST 500 MG [facility] Metformin hydrochloride 500 MG Oral Tablet Metformin 04/04 11:33:57 AM EST 500 MG [facility] Metformin hydrochloride 500 MG Oral Tablet Metformin 04/04 11:33:57 AM EST 500 MG [facility] Rosuvastatin calcium 20 MG Oral Tablet Rosuvastatin 0 07:29:04 AM EST 0 active [facility] Rosuvastatin calcium 20 MG Oral Tablet Rosuvastatin 0 07:29:04 AM EST 0 active [facility] Rosuvastatin calcium 20 MG Oral Tablet Rosuvastatin 0 07:29:04 AM EST 0 active [facility] 20 mg 03/27/2019 12:00:00 AM EST tablet 90 TAKE ONE TABLET BY MOUTH AT BEDTIME TAKE ONE TABLET BY MOUTH AT BEDTIME SOLD: 03/29/2019 [facility] 20 mg 03/27/2019 12:00:00 AM EST tablet 90 TAKE ONE TABLET BY MOUTH AT BEDTIME TAKE ONE TABLET BY MOUTH AT BEDTIME SOLD: 06/27/2019 [facility] Rosuvastatin calcium 20 MG Oral Tablet ROSUVASTATIN CALCIUM 03/27/2019 12:00:00 AM EST tablet 90 TAKE ONE TABLET BY MOUTH AT BEDTIME TAKE ONE TABLET BY MOUTH AT BEDTIME SOLD: 12/22/2019 [facility] Rosuvastatin calcium 20 MG Oral Tablet ROSUVASTATIN CALCIUM 03/27/2019 12:00:00 AM EST tablet 90 TAKE ONE TABLET BY MOUTH AT BEDTIME TAKE ONE TABLET BY MOUTH AT BEDTIME SOLD: 09/25/2019 [facility] montelukast 10 MG Oral Tablet Montelukast Montelukast 03/21/2019 09:17:05 AM EST 10 MG completed [facility] montelukast 10 MG Oral Tablet Montelukast Montelukast 03/21/2019 09:17:05 AM EST 10 MG completed [facility] montelukast 10 MG Oral Tablet Montelukast Montelukast 03/21/2019 09:17:05 AM EST 10 MG completed [facility] montelukast 10 MG Oral Tablet Montelukast Montelukast 03/21/2019 09:17:05 AM EST [address] [facility] montelukast 10 MG Oral Tablet MONTELUKAST SODIUM 03/21/2019 12:0 0:00 AM EST tablet 30 TAKE ONE TABLET BY MOUTH EVERY E VENING TAKE ONE TABLET BY MOUTH EVERY EVENING SOLD: 03/21/2019 [facility] meloxicam 7.5 MG Oral Tablet Meloxicam Meloxicam 02/17/2019 08:4 5:03 AM EST 7.5 MG completed [facility] meloxicam 7.5 MG Oral Tablet Meloxicam Meloxicam 02/17/2019 08:4 5:03 AM EST 7.5 MG completed [facility] meloxicam 7.5 MG Oral Tablet Meloxicam Meloxicam 02/17/2019 08:4 5:03 AM EST 7.5 MG completed [facility] meloxicam 7.5 MG Oral Tablet Meloxicam Meloxicam 02/17/2019 08:4 5:03 AM EST 7.5 MG [facility] 7.5 mg 02/17/2019 12:00:00 AM EST tablet 30 TAKE ONE TABLET BY MOUTH EVERY DAY TAKE ONE TABLET BY MOUTH EVERY DAY SOLD: 02/17/2019 [facility] Azithromycin 250 MG Oral Tablet Azithromycin 02/14/2019 02:45:52 PM EST 250 MG completed [facility] Azithromycin 250 MG Oral Tablet Azithromycin 02/14/2019 02:45:52 PM EST 250 MG [facility] Azithromycin 250 MG Oral Tablet Azithromycin 02/14/2019 02:45:52 PM EST 250 MG [facility] Azithromycin 250 MG Oral Tablet Azithromycin 02/14/2019 02:45:52 PM EST 250 MG [facility] Omeprazole 40 MG Delayed Release Oral Capsule Omeprazole 02/14/2019 11:39:51 AM EST [address] [facility] Omeprazole 40 MG Delayed Release Oral Capsule Omeprazole 02/14/2019 11:39:51 AM EST 40 MG [facility] Omeprazole 40 MG Delayed Release Oral Capsule Omeprazole 02/14/2019 11:39:51 AM EST 40 MG [facility] Omeprazole 40 MG Delayed Release Oral Capsule Omeprazole 02/14/2019 11:39:51 AM EST 40 MG [facility] 40 mg 02/14/2019 12:00:00 AM EST capsule,delayed release (DR/EC) 30 TAKE ONE CAPSULE BY MOUTH EVERY DAY TAKE ONE CAPSULE BY MOUTH EVERY DAY SOLD: 02/14/2019 [facility] 250 mg 02/14/2019 12:00:00 AM EST tablet 6 TAKE TWO TABLETS BY MOUTH AT ONCE ON THE FIRST DAY THEN TAKE ONE DAILY THEREAFTER TAKE TWO TABLETS BY MOUTH AT ONCE ON THE FIRST DAY THEN TAKE ONE DAILY THEREAFTER SOLD: 02/14/2019 [facility] Rosuvastatin calcium 20 MG Oral Tablet Rosuvastatin 9 10:07:27 AM EST 20 MG [facility] Rosuvastatin calcium 20 MG Oral Tablet Rosuvastatin 9 10:07:27 AM EST 20 MG [facility] Rosuvastatin calcium 20 MG Oral Tablet Rosuvastatin 9 10:07:27 AM EST 20 MG [facility] Metformin hydrochloride 500 MG Oral Tablet Metformin 01/03 10:06:55 AM EST 500 MG completed [facility] Metformin hydrochloride 500 MG Oral Tablet Metformin 01/03 10:06:55 AM EST 500 MG completed [facility] Metformin hydrochloride 500 MG Oral Tablet Metformin 01/03 10:06:55 AM EST 500 MG completed [facility] 0.005 % 11/17/2018 12:00:00 AM EDT drops 7 INSTILL 1 DROP IN EACH EYE ONCE DAILY AT BEDTIME INSTILL 1 DROP IN EACH EYE ONCE DAILY AT BEDTIME SOLD: 03/29/2019 [facility] 0.005 % 11/17/2018 12:00:00 AM EDT drops 7 INSTILL 1 DROP IN EACH EYE ONCE DAILY AT BEDTIME INSTILL 1 DROP IN EACH EYE ONCE DAILY AT BEDTIME SOLD: 08/03/2019 [facility] 500 mg 06/06/2018 12:00:00 AM EDT tablet 180 TAKE ONE TABLET BY MOUTH TWICE A DAY TAKE ONE TABLET BY MOUTH TWICE A DAY SOLD: 03/29/2019 [facility] Insurance Providers Payer name Policy type / Coverage type Policy ID Covered republican ID Covered republican's relationship to cobb Policy Cobb Plan Information [employer] [id number] SP [id number] WE[employer] -O/P [id number] 18 [id number] [employer] [id number] [id number] [facility] [id number] Problems, Conditions, and Diagnoses Code Display Name Description Problem Type Effective Dates Data Source(s) 11192373 Dysphagia Dysphagia Problem 10/31/2019 12:00:00 AM ED T [facility] ([facility]) [id number] Primary open-angle glaucoma, left eye, m ild stage Primary open-angle glaucoma, left eye, mild stage Diagnosis 11/15/2019 06:30:00 AM EDT [facility] [id number] Primary open-angle glaucoma, right eye, stage unspecified Primary open- angle glaucoma, right eye, stage unspecified Diagnosis 0 06:45:00 AM EDT [facility] H268 Other specified cataract Other specified cataract Diag nosis 11/08/2019 06:45:00 AM EDT [facility] Surgeries/Procedures Procedure Description Date Indications Data Source(s) UPPER NDSC BIOPSY SINGLE/MULTIPLE 11/27/2019 12:00:00 AM EDT [facility] ([facility]) Upper gastrointestinal tract contrast procedure (procedure) 09/14/2019 10:12:00 AM EDT [facility] CT Thorax without contrast 08/25/2019 11:28:00 AM EDT [facility] CT Thorax without contrast 08/25/2019 11:28:00 AM [facility] Screening mammography (procedure) 03/20/2019 11:42:00 AM [facility] Screening mammography (procedure) 03/20/2019 11:42:00 AM [facility] Screening mammography (procedure) 03/20/2019 11:42:00 AM [facility] Screening mammography (procedure) 03/20/2019 11:42:00 AM [facility] Computed tomography of lungs (procedure) 02/24/2019 11 :45:00 AM [facility] Computed tomography of lungs (procedure) 02/24/2019 11 :45:00 AM [facility] Computed tomography of lungs (procedure) 02/24/2019 11 :45:00 AM [facility] Computed tomography of lungs (procedure) 02/24/2019 11 :45:00 AM [facility] Skeletal X-ray of pelvis and hip (procedure) 9 12:29:00 PM [facility] Diagnostic radiography of chest, combine d posteroanterior and lateral (procedure) 02/14/2019 12:29:00 PM [facility] Skeletal X-ray of pelvis and hip (procedure) 9 12:29:00 PM [facility] Diagnostic radiography of chest, combine d posteroanterior and lateral (procedure) 02/14/2019 12:29:00 PM [facility] Skeletal X-ray of pelvis and hip (procedure) 9 12:29:00 PM [facility] Diagnostic radiography of chest, combine d posteroanterior and lateral (procedure) 02/14/2019 12:29:00 PM [facility] Skeletal X-ray of pelvis and hip (procedure) 9 12:29:00 PM [facility] Diagnostic radiography of chest, combine d posteroanterior and lateral (procedure) 02/14/2019 12:29:00 PM [facility] Results ID Date Data Source [id number] 03/28/2020 10:00:00 AM EST [facility] Name Value Range Interpretation Code Description Data Kadie rce(s) Supporting Document(s) SARS coronavirus 2 RNA Not Detected [facility] [place] This lab was ordered by [facility] and reported by [facility]. ID Date Data Source [id number] 01/03/2020 08:14:00 AM [facility] Patient Name: KIN CHAMBERS DO B: 1950 Sex: F Pt Unit #: [id number] Location:[facility] Provider: Visit Date/Time: 01/03/20 Primary Insurance: WE[employer] FEE FOR SERVICE Secondary Insurance: Self Pay Intake Vital Signs 01/03/20 08:20 Current Height 5 ft 2 in Current Weight 176 lb Weight Measurement Method Standing Scale BMI 32.1 BP 130/76 Blood Pressure Location Lt brachial Position Sitting Respiration 16 Pulse 65 Pulse Source Pulse Oximeter Temp 97.9 F Temp Source Oral Pulse Oximetry (%) 97 Intake-Medicare Annual Visit Reasons: Medicare Annual Wellness subsequent Nurse Note: Medicare annual physical sub. No concerns. Refused all types of CCS when offered. Had mammo on 03/20/19. No further paps. ? bone density. Had 4-5 yrs ago. (R) eye-can hardly see out of it even after cataract surgery. has to start wearing glasses again. Going to see eye doctor on Wednesday. Been to [facility]. Is patient in pain?: No Allergies tramadol [Tramadol] Allergy (Severe, Verified 01/03/20 08:31) swelling of face and body bacitracin [From Polysporin] Allergy (Unknown, Verified 01/03/20 08:31) polymyxin B [From Polysporin] Allergy (Unknown, Verified 01/03/20 08:31) nicotine [From Nicoderm CQ] Adverse Reaction (Intermediate, Verified 01/03/20 08:31) RASH Feel stressed/tense/nervous/anxious/difficulty sleeping: not at all Medications aspirin (Aspir-) 81 mg PO DAILY cholecalciferol (vitamin D3) 10,000 units PO 1XW cyclobenzaprine 10 mg PO .every day as needed glipizide ER 2.5 mg PO QDAY lancets BID latanoprost 0 .005% 1 drop BOTH EYES (OU) DAILY omeprazole PO OneTouch Verio Flex Start (blood-glucose meter) Dx E11.9 TEST STRIPS Test BS daily NS OneTouch Verio test strips (blood sugar diagnostic) Dx E11.9 TEST STRIPS Test BS daily NS rosuvastatin TAKE ONE TABLET BY MOUTH AT BEDTIME sucralfate PO Post menopausal: Yes Fall Risk History of falls: No Ambulatory Aid:: None Gait/Transferring:: Normal Medications:: No High Risk Medications HIV testing Offer: Yes Requirement for HIV testing offer been met?: Declines today. Pretest education received and acknowledged Hep C Testing Offered: Yes Hep C Requirement met: Refuses today SBIRT Annual Questionnaire Are you currently in recovery for alcohol or substance use?: No How many times in the past year have you had 4 or more drinks in a day?: None How many times in the past year have you used a recreational drug or used a prescription medication for nonmedical reasons?: None Coronavirus Screening Screening Have you traveled outside of [facility] or [facility] in the last 14 days.: No Has patient experienced coronavirus symptoms: No PFSH Medical History (Updated 01/03/20 @ 08:52 by Shirin Hernandez NP) Abnormal CT lung screening Bilateral hip pain bronchioloitis from smoking Carotid artery stenosis Carotid artery stenosis (07/03/13) Chronic bronchitis Chronic renal impairment Dehydration Diabetes mellitus Dr Yuan rule out COPD Essential hypertension Gastroesophageal reflux disease Hyperlipidemia leg cramps Mixed hyperlipidemia Nicotine dependence with current use Pain with swallowing Polycythemia (11/18/15) Polyp of colon Smoking greater than 30 pack years Vitamin D deficiency Surgical History (Updated 07/05/19 @ 07:30 by Shirin Hernandez NP) Angioplasty of vein History of - surgery History of - surgery History of colonoscopy Hx of total hysterectomy Status post tubal ligation Family History (Updated 11/14/14 @ 22:04 by ) Mother No problems noted. Father No problems noted. Other Diabetes Social History (Updated 01/03/20 @ 08:17 by Meryl Young) Does the Patient have a Healthcare Proxy: Yes Does Patient have a DNR?: Yes Does Patient have a Living Will?: No Smoking Status: Former smoker Tobacco: How many years used: 40 how long ago did patient quit smokin yrs ago but vaps. wi ll be quitting as son as vap runs out. Medicare Annual Wellness Type Of Examation Type of Exam: Subsequent Wellness Exam EKG EKG Performed: No Medication list Medications aspirin (Aspir-) 81 mg PO DAILY cholecalciferol (vitamin D3) 10,000 units PO 1XW cyclobenzaprine 10 mg PO .every day as needed glipizide ER 2.5 mg PO QDAY lancets BID latanoprost 0.005% 1 drop BOTH EYES (OU) DAILY omeprazole PO OneTouch Verio Flex Start (blood-glucose meter) Dx E11.9 TEST STRIPS Test BS daily NS OneTouch Verio test strips (blood sugar diagnostic) Dx E11.9 TEST STRIPS Test BS daily NS rosuvastatin TAKE ONE TABLET BY MOUTH AT BEDTIME sucralfate PO Allergies Allergies tramadol [Tramadol] Allergy (Severe, Verified 01/03/20 08:31) swelling of face and body bacitracin [From Polysporin] Allergy (Unknown, Verified 01/03/20 08:31) polymyxin B [From Polysporin] Allergy (Unknown, Verified 01/03/20 08:31) nicotine [From Ti oderm CQ] Adverse Reaction (Intermediate, Verified 01/03/20 08:31) RASH Current Diet Current diet: diabetic PHQ-2/9 Over the last 2 weeks, how often have you been bothered by any of the following problems? 1. Little interest or pleasure in doing things: not at all 2. Feeling down, depressed, or hopeless: not at all Total score: 0 Functional Assessment Bathing: Dependent Dressing: Dependent Toileting: Dependent Transferring: Dependent Continence: Dependent Feeding: Dependent Total Score: 0 Home Safety Home Safety: Reports Bathroom: Grab bars, Lighting: Adequate, [place]: No throw rugs and Stairs: Handrail available Hearing Hearing Left Ear: Normal Hearing Right Ear: Normal Hearing test method: whispered voice IADL Assessment Functional abilities: Up Go test, pt steady, Pt independent w/phone, Pt independent w/transportation, Pt independent w/shopping, Pt independent w/housework, Pt independent w/meal preparation, Pt independent w/laundry, Pt independent w/medication and Pt independent w/finances Cognitive Evaluation Oriented to the date:: Yes Oriented to time:: Yes Oriented to place:: Yes Mood: grossly normal Affect: Normal Judgement: normal Needs caregiver for assistance: No Clock drawing: Yes Clock drawing with correct time: Yes 3 item recall: 3 HPI Additional HPI HPI Details: Kin presents to the clinic for her annual PE (medicare). Due for mammo and DEXA in the new year. Continues to have difficulty with the right eye post cataract surgery. She is working with ophthalmology and will see again on Wednesday. No further concerns. Labs drawn last month. Review of Systems Const Denies anorexia, Denies excessive sweating, Denies fatigue, Denies fever(s), Denies headache(s), Denies weight gain and Denies weight loss Eyes Denies blurry vision, Reports change in vision, Denies dry eyes, Reports irritation, Denies itchy eyes and Denies loss of vision ENT Denies abnormal hearing, Denies dysphagia, Denies dizziness, Denies headache(s), Denies lip swelling, Denies nasal congestion, Denies nasal discharge, Denies disequilibrium, Denies sinus pain,Denies sore throat and Denies throat swelling Card Denies chest pain, Denies pedal edema, Denies lightheadedness, Denies palpitations and Denies dyspnea Resp Denies cough, Denies excessive phlegm production, Denies pain on inspiration, Denies dyspnea and Denies wheezing GI Denies abdominal pain, Denies change in bowel habits, Denies dysphagia, Denies early satiety, Deniesheartburn, Denies diarrhea, Denies nausea and Denies vomiting Musc Denies back pain, Denies arthralgias, Denies limited range of motion, Denies muscle cramps and Denies muscle weakness Skin/Breast Denies breast pain, Denies change in pigmentation, Denies lesions, Denies nail changes, Denies rash and Denies unusual bruising Neuro Denies abnormal hearing, Denies dizziness, Denies headache(s), Denies loss of vision, Denies memory loss, Denies paresthesias and Denies disequilibrium Psych Denies abnormal sleep pattern, Denies anxiety, Denies change in appetite, Denies depression, Denies irritability and Denies memory loss Endo Denies excessive sweating, Denies fatigue and Denies palpitations Aller/Immun Denies urticaria, Denies itchy eyes, Denies lip swelling, Denies seasonal rhinorrhea, Denies throat swelling and Denies wheezing Exam Const General: cooperative, healthy appearing, no acute distress, well developed and well groomed Nutritional Appearance: well nourished Orientation: alert, awake and oriented x3 [facility] Head: normocephalic and atraumatic Ears: hearing grossly normal bilaterally, external ears normal and TM's normal bilaterally General nose exam: no nasal discharge Face and sinus: normal facial exam and sinuses nontender Mouth: oral mucosae normal, lip normal, tongue normal, oropharynx normal and moist mucous membranes Throat: posterior oropharynx normal Eyes General: appearance normal, both eyes and all related structures Eyelids: eyelids normal Conjunctivae: conjunctival abnormality bilaterally (Erythema) Sclera: scleral abnormality bilaterally other (erythema; watery) Pupils: PERRL EOM: EOM intact bilaterally Neck Neck: normal visual inspection, full ROM, no lymphadenopathy and supple Neck mass: No Resp Effort Inspection: normal respiratory effort Auscultation: clear to auscultation bilaterally Cardio Rate: regular rate Rhythm: regular rhythm Heart Sounds: S1 normal and S2 normal Pulses: normal peripheral pulses GI Palpation: soft, no hepatosplenomegaly and nontender Auscultation: normal bowel sounds Musc Cervical Spine: normal cervical lordosis and cervical ROM normal Thoracic/Lumbar Spine: thoracic and lumbar spine normal to inspection and thoraco-lumbar ROM normal Skin Lesions: no lesions Rashes: no rashes Neuro General: patient alert, patient awake, patient oriented x3, gait normal and moves all extremities Cognition: normal cognition Speech: speech normal Gait: normal gait Motor: muscle tone normal throughout and strength 5/5 throughout Sensory Exam: no sensory deficits noted Extrem General: normal to inspection, full ROM, capillary refill normal, no clubbing, cyanosis or edema andno muscle atrophy Psych Appearance: grossly normal and well kempt Mental Status: mental status grossly normal Speech and Movement: speech and movement normal Mood: congruent mood Affect: normal affect Attitude: cooperative Th ought Process: normal Thought Content: normal Insight: insight good Judgment: judgment good Assessment Plan Assessment Plan (1) Medicare annual wellness visit, subsequent: Code(s): Z00.00 - Encounter for general adult medical examination without abnormal findings Plan - Shirin Hernandez NP: Labs up to date. Refuses CCS. Mammo and DEXA scan set up for the new year. She follows closely with ophthalmology for her recent cataract surgery. (2) Essential hypertension: Status: Acute Code(s): I10 - Essential (primary) hypertension SNOMED Code(s): 00518927 Category: Medical (3) Diabetes mellitus: Status: None SNOMED Code(s): 59025589 Category: Medical Orders Other Orders: Orders: 3D DIG MAMMO SCREEN BILAT 2 Months Z12.31, Z12.39 Bone density (DEXA) 2 Months M81.0, Z13.820 Follow Up: 6 Months (HTN/DMII follow up) <Electronically signed by Shirin Hernandez PACKAGE DYEING MACHINE OPERATOR> 01/03/20 0902 Name Value Range Interpretation Code Description Data Kadie rce(s) Supporting Document(s) ID Date Data Source [id number] 12/04/2019 07:54:00 [place] [address] OPERATIVE SUMMARYNAME: REYES De La Vega DATE OF : 1950TTENDING PHYS: Phil Selby MD DATE: 11/15/19 MR#: [id number] OF PROCEDURE: 11/15/2019PREOPERATIVE DIAGNOSIS: Cataract and glaucoma, left eye.POSTOPERATIVE DIAGNOSIS: Cataract and glaucoma, left eye.PROCEDURE: Phacoemulsification with intraocular lens implantation of AUOOTO 19.5 dioptersalong with ECP and iStent.SURGEON: Phil Selby MD.SCHOOL SOCIAL WORKER: None.COMPLICATIONS: None.INDICATION: Blurry vision and glaucoma.DETAILS OF PROCEDURE: The patient was brought to the operating room, was placed insupine position. The eye was prepped and draped in a sterile fashion for ophthalmic surgery,following which a lid speculum was placed. A side port incision was made and EndoCoat wasinjected into the anterior chamber. A temporal clear corneal incision was made with a 2.4 mmKeratome, followed by a capsulorhexis. Hydrodissection was then done with the help of thebalanced salt solution, and the lens was rotated within the capsular bag. Phacoemulsification wasthen done in a byybod-[id number] method within the capsular bag, followed by aspiration of thecortical material using irrigation and aspiration cannula. Healon was then placed underneath the irisand with the help of the EndoProbe, ciliary processes were visualized on the video screen andendocytophotocoagulation was done 280 degrees at 0.25 mV. Good results were noted as seen byshaking of the ciliary processes. Following this, Healon was placed in the anterior chamber,patient's head turned away from the surgeon, microscope towards the surgeon under highmagnification with the help of the Gonio lens, two iStents were then injected nasally 2 o'clockhours apart, good r ed reflex was noted. Viscoelastic was then aspirated, the wound was hydrated,no leaks were noted, intracameral antibiotic was given, and the speculum was removed and patientreturned to the recovery room, where detailed post-op instructions were given. [address] [place] [address] OPERATIVE SUMMARYNAME: REYES De La Vega DATE OF : 1950 PHYS: Phil Selby MD DATE: 11/15/19 MR#: [id number]: Phil Selby MD 12/02/19 17:55DT: SSR 12/04/19 07:52DS: Phil Selby MD 12/07/19 13:44 2 Name Value Range Interpretation Code Description Data Kadie rce(s) Supporting Document(s) ID Date Data Source [id number] 12/04/2019 07:51:00 [place] [address] OPERATIVE SUMMARYNAME: REYES De La Vega DATE OF : 1950 PHYS: Phil Selby MD DATE: 11/08/19 MR#: [id number] OF PROCEDURE: 11/08/2019PREOPERATIVE DIAGNOSIS: Cataract and glaucoma, right eye.POSTOPERATIVE DIAGNOSIS: Cataract and glaucoma, right eye.PROCEDURE: Phacoemulsification with endocytophotocoagulation and placement of iStent. RLpower used was AUOOTO 16.5 diopters. iStent inject reference number was [id number].SURGEON: Phil Selby MD.SCHOOL SOCIAL WORKER: None.COMPLICATIONS: None.INDICATION: Blurry vision and glaucoma.DETAILS OF PROCEDURE: The patient was brought to the operating room, was placed insupine position. The eye was prepped and draped in a sterile fashio n for ophthalmic surgery,following which a lid speculum was placed. A side port incision was made and EndoCoat wasinjected into the anterior chamber. A temporal clear corneal incision was made with a 2.4 mmKeratome, followed by a capsulorhexis. Hydrodissection was then done with the help of thebalanced salt solution, and the lens was rotated within the capsular bag. Phacoemulsification wasthen done in a [id number]-[id number] method within the capsular bag, followed by aspiration of thecortical material using irrigation and aspiration cannula. Healon was then placed underneath the irisand with the help of the EndoProbe, ciliary processes were visualized on the video screen andendocytophotocoagulation was done 280 degrees at 0.25 mV. Good results were noted as seen byshaking of the ciliary processes. Following this, Healon was placed in the anterior chamber,patient's head turned away from the surgeon, microscope towards the surgeon under highmagnification with the help of the Gonio lens, two iStents were then injected nasally 2 o'clockhours apart, good red reflex was noted. Viscoelastic was then aspirated, the wound was hydrated,no leaks were noted, intracameral antibiotic was given, and the speculum was removed and patientreturned to the recovery room, where detailed post-op instructions were given. [address] [place] [address] OPERATIVE SUMMARYNAME: REYES De La Vega DATE OF : 1950TTENDING PHYS: Phil Selby MD DATE: 11/08/19 MR#: [id number]: Phil Selby MD 12/02/19 17:54DT: SSR 12/04/19 07:50DS: Phil Selby MD 12/07/19 13:44 2 Name Value Range Interpretation Code Description Data Kadie rce(s) Supporting Document(s) ID Date Data Source [id number] 11/29/2019 08:52:00 AM EDT [facility] Patient Name: KIN CHAMBERS DO B: 1950 Sex: F Pt Unit #: [id number] Location:[facility] Provider: Visit Date/Time: 11/29/19 Primary Insurance: [employer] FEE FOR SERVICE Secondary Insurance: Self Pay Intake Vital Signs 11/29/19 08:53 Current Height 5 ft 1.5 in Current Weight 170 lb Weight Measurement Method Stated by Patient BMI 31.6 BP 134/78 Blood Pressure Location Lt brachial Position Sitting Respiration 18 Pulse 68 Pulse Strength Normal Pulse Source Pulse Oximeter Temp 97.6 F Temp Source Oral Pulse Oximetry (%) 97 Oxygen Delivery Method room air Intake Visit Reasons: Diabetes follow-up Nurse Note: Patient is here for a diabetes follow up. She had recent labs drawn. Computer Engineering Technician Required: No Accompanied by: Self / Same as Patient Is patient in pain?: No Allergies tramadol [Tramadol] Allergy (Severe, Unverified 01/10/18 13:58) swelling of face and body bacitracin [From Polysporin] Allergy (Unknown, Unverified 01/10/18 13:58) polymyxin B [From Polysporin] Allergy (Unknown, Unverified 01/10/18 13:58) nicotine [From Nicoderm CQ] Adverse Reaction (Intermediate, Unverified 01/10/18 13:58) RASH HIV Testing Offer - ages 13-64 Requirement for HIV testing offer been met?: Patient reports past refusal Coronavirus Screening Screening Have you traveled outside of [facility] or [facility] in the last 14 days.: No Has patient experienced coronavirus symptoms: No [facility] Medical History (Updated 09/18/19 @ 13:17 by Shirin Hernandez NP) Abnormal CT lung screening Bilateral hip pain bronchioloitis from smoking Carotid artery stenosis Carotid artery stenosis (07/03/13) Chronic bronchitis Chronic renal impairment Dehydration Diabetes mellitus Dr Yuan rule out COPD Essential hypertension Gastroesophageal reflux disease Hyperlipidemia leg cramps Mixed hyperlipidemia Nicotine dependence with current use Pain with swallowing Polycythemia (11/18/15) Polyp of colon Smoking greater than 30 pack years Vitamin D deficiency Afluria Qd 2019-(3yr up)(PF) Performing Provider: JYOTSNA Shafer dministered by: Chasity Bran on 11/29/19 09:15 Surgical History (Updated 07/05/19 @ 07:30 by Shirin Hernandez NP) Angioplasty of vein History of - surgery History of - surgery History of colonoscopy Hx of total hysterectomy Status post tubal ligation Family History (Updated 11/14/14 @ 22:04 by ) Mother No problems noted. Father No problems noted. Other Diabetes Social History (Updated 08/30/19 @ 10:07 by Meryl Young) Does the Patient have a Healthcare Proxy: Yes Does Patient have a DNR?: Yes Does Patient have a Living Will?: No Smoking Status: Light tobacco smoker how long ago did patient quit smokin yrs ago but vaps. will be quitting as son as vap runs out.Not allowed i HPI Diabetes Cardiopulmonary symptoms: Denies dyspnea or lightheadedness Other symptoms: Reports blurry vision and change in vision Review of Systems Const All systems reviewed are unremarkable except as noted in HPI and below Reports as per HPI Eyes Reports blurry vision, Reports change in vision, Reports floaters, Reports irritation and Reports itchy eyes Details: Seeing ophthalmology; recent cataract surgery, having hard time with turn around and recovery. Not able to see well. ENT Reports dysphagia (painful swallowing) Details: Had endoscopy on Wednesday; ulceration noted 32cm from the incisors. Card Denies chest pain, Denies pedal edema, Denies lightheadedness, Denies palpitations and Denies dyspnea Resp Denies cough, Denies excessive phlegm production, Denies pain on inspiration, Denies dyspnea and Denies wheezing GI Reports dysphagia (painful swallowing) Endo Denies palpitations Aller/Immun Reports itchy eyes and Denies wheezing Exam Const General: cooperative, healthy appearing and comfortable Nutritional Appearance: average body habitus and well nourished Orientation: alert, awake and oriented x3 Resp Effort Inspection: normal respiratory effort Auscultation: clear to auscultation bilaterally Cardio Rate: regular rate Rhythm: regular rhythm Heart Sounds: S1 normal and S2 normal Immunizations Afluria Qd 2019-(3yr up)(PF) Performing Provider: Lisa Hernandez NP Administered by: Chasity Bran on 11/29/19 09:15 Dose Route Admin Location Lot Number Expiration Date NDC Manufactu rer 60 mcg IM Right deltoid [id number] 08/14/20 07258-340-03 [employer] VIS Given Date VIS Provided VIS Publication Date 11/29/19 Single Vaccine 18 Eligibility Eligibility Date Funding Source Not VFC Eligible 11/29/19 Private Assessment Plan Assessment Plan (1) Diabetes mellitus: Status: None Category: Medical Plan - Shirin Hernandez NP: Labs reviewed. Doing well on medication changes. Diet and exercise education provided. Additional Comments Additional Comments: Has an appt next month for annual PE. On carafate for ulceration in esophagus, and notes some improvement. Pathology pending. She is continuing to follow up with ophthalmology, education to be responsible with vision changes, and do not drive if not able to see well, she expresses understanding. Will see next month. Orders Other Orders: Orders: INJ - Influenza Vaccine Today Z23 <Electronically signed by Shirin Hernandez PACKAGE DYEING MACHINE OPERATOR> 11/29/19 0925 Name Value Range Interpretation Code Description Data Kadie rce(s) Supporting Document(s) ID Date Data Source [id number] 11/28/2019 08:01:00 AM EDT [facility] Name Value Range Interpretation Code Description Data Kadie rce(s) Supporting Document(s) Hemoglobin A1c % 6.4 % 4.0-6.0 Above high normal [facility] The following ranges may be u sed for interpretation of results: HGBA1C degree of glucose control: Greater than 8%: Action Suggested * Less than 7%: Goal of Diabetic Therapy Less than 6%: NormalFactors such as duration of diabetes, adherence to therapyand the age of the patient should also be considered inassessing the degree of blood glucose control.* High risk of developing long term care administrator complications such asretinopathy, nephropathy, neuropathy, cardiopathy, etc. Some danger of hypoglycemic reaction in Type I diabetics.Some glucose intolerant individuals and "Sub Clinical"diabetics may demonstrate HGBA1C levels in this area. Glucose mean value [Moles/volume] in Blood Estimated f rom glycated hemoglobin 137 mg/dL [facility] l An A1C of 7% - the goal of diabetic ther apy - is equivalentto an EAG of 154 mg/dl. ID Date Data Source [id number] 11/28/2019 08:08:00 AM EDT [facility] Name Value Range Interpretation Code Description Data Kadie rce(s) Supporting Document(s) Urea nitrogen [Mass/volume] in Serum or Plasma 17 mg/dL 9-23 N [facility] Sodium [Moles/volume] in Serum or Plasma 144 mmol/L 132-146 N [facility] Potassium [Moles/volume] in Serum or Plasma 4.6 mmol/L 3.5-5.5 N [facility] Chloride [Moles/volume] in Serum or Plasma 109 mmol/L 99-109 N [facility] Carbon dioxide, total [Moles/volume] in Serum or Plasma 29 mmol/L 20 -31 N [facility] Anion gap in Serum or Plasma 11 mmol/L 8-16 N [facility] Glucose [Mass/volume] in Serum or Plasma 118 mg/dL 74-106 Above high normal [facility] Creatinine 1.2 mg/dL 0.5-1.1 Above high normal [facility] Glomerular filtration rate/1.73 sq M.pre dicted [Volume Rate/Area] in Serum or Plasma 45 ml/min ABOVE 60 [facility] ital Alanine aminotransferase [Enzymatic acti vity/volume] in Serum or Plasma by With P-5'-P 22 U/L 10-49 N [facility] ital Aspartate aminotransferase [Enzymatic ac tivity/volume] in Serum or Plasma by With P-5'-P 20 U/L 0-33 N [facility] pital Alkaline phosphatase [Enzymatic activity/volume] in Serum or Plasma 107 U/L 45-129 N [facility] Calcium [Mass/volume] in Serum or Plasma 9.5 mg/dL 8.5-10.1 N [facility] Bilirubin.total [Mass/volume] in Serum or Plasma 0.7 mg/dL 0.3-1.2 N [facility] Albumin [Mass/volume] in Serum or Plasma by Bromocresol purple (BCP) dye binding method 3.8 g/dL 3.2-4.8 N [facility] ital Protein [Mass/volume] in Serum or Plasma 7.3 g/dL 5.7-8.2 N [facility] ID Date Data Source [id number] 11/28/2019 08:08:00 AM EDT [facility] Name Value Range Interpretation Code Description Data Kadie rce(s) Supporting Document(s) Triglycerides 102 mg/dL 0-150 N [facility] Cholesterol 150 mg/dL 120-200 [facility] HDL Cholesterol 62 mg/dL [facility] HDL Less than 40 mg/dL: Major risk for CHDHDL Greater than 59 mg/dL: Low risk for CHD LDL Cholesterol, Calc 68 mg/dL 0-100 N [facility] ID Date Data Source [id number] 11/27/2019 09:20:00 AM EDT [facility] ([facility]) Name Value Range Interpretation Code Description Data Kadie rce(s) Supporting Document(s) Surgical pathology study Laboratory test result [facility] ([facility] FINAL DIAGNOSIS Esophageal ulcer, biopsy: Squamocolumnar junction mucosa with moderate acute and chronic inflammation and mucosal erosion. No viral cytopathic effect is noted. No intestinal metaplasia is noted. 11/28/2019 - 110 CLINICAL DIAGNOSIS Pain when eating 11/27/20191345 GROSS DIAGNOSIS Received in formalin labeled "biopsy esophageal ulcer" is a 0.8 x 0.3 x 0.2 cm. aggregate of mucosal fragments. All in one. - 11/27/2019 - 1345 Signed Adelina Rodriguez MD 11/28/2019 1526 ID Date Data Source [id number] 11/22/2019 12:30:00 PM EDT [facility] Name Value Range Interpretation Code Description Data Kadie rce(s) Supporting Document(s) SARS coronavirus 2 RNA [facility] This lab was ordered by [facility] and reported by [facility]. ID Date Data Source [id number] 11/10/2019 07:24:00 AM EDT [facility] Name Value Range Interpretation Code Description Data Kadie rce(s) Supporting Document(s) SARS-CoV-2 (COVID19) [facility] This lab was ordered by [facility] and reported by [facility]. ID Date Data Source [id number] 11/03/2019 08:00:00 AM EDT [facility] Name Value Range Interpretation Code Description Data Kadie rce(s) Supporting Document(s) SARS-CoV-2 (COVID19) [facility] This lab was ordered by [facility] and reported by [facility]. ID Date Data Source [id number] 09/14/2019 10:48:00 AM EDT [facility] [address] [place] [address] [phone] NAME SEX PT STATUS ACCOUNT NUMBER KIN CHAMBERS PRE REF [id number] ORDERING PHYSICIAN LOCATION MEDICAL RECORD NO. Shirin FERRELL [id number] ATTENDING PHYSICIAN DATE OF DATE OF EXAM/TIME Shirin Hernandez NP 1950 09/14/191011 TYPE / EXAM Xray UGI w/o KUB- SINGLE CONTRA REASON FOR EXAM Pain with swallowing CLINICAL HISTORY: 68 years of age, Female, . TECHNIQUE: A single-contrast examination was performed using dense and regular barium. Multiple fluoroscopic spot images of the esophagus, stomach, and proximal small bowel were acquired. COMPARISON: There are no prior films available on PACS for comparison. FINDINGS: The x ray equipment mechanic radiograph is unremarkable. The patient swallowed contrast [...] La Garza MD on 09/14/19 1059 Date T paramjit CC: Shirin Hernandez; Dieudonne De La Garza MD Techn: CUMME Trans Dt/Tm: Trans by: DT Prt Dt/Tm: 1825-1632: Total DLP = 0.00 mGy-cm Fluoroscopy Time (in secs): 153 Name Value Range Interpretation Code Description Data Kadie rce(s) Supporting Document(s) ID Date Data Source [id number] 08/30/2019 10:04:00 AM EDT [facility] Patient Name: KIN CHAMBERS : 1950 Sex: F Pt Unit #: [id number] Location:[facility] Provider: Visit Date/Time: 08/30/19 Primary Insurance: [employer] FEE FOR SERVICE Secondary Insurance: Self Pay Intake Vital Signs 08/30/19 10:13 Current Weight 168 lb Weight Measurement Method Standing Scale BP 120/60 Blood Pressure Location Rt brachial Position Sitting Respiration 16 Pulse 74 Pulse Source Pulse Oximeter Temp 98.4 F Temp Source Oral Pulse Oximetry (%) 96 Intake Visit Reasons: Chronic kidney disease Nurse Note: Low kidney count results on blood work. Also, having hard time swallowing hard consisitency foods. Hurts from upper sternum down. Is patient in pain?: No Allergies tramadol [Tramadol] Allergy (Severe, Unverified 01/10/18 13:58) swelling of face and body bacitracin [From Polysporin] Allergy (Unknown, Unverified 01/10/18 13:58) polymyxin B [From Polysporin] Allergy (Unknown, Unverified 01/10/18 13:58) nicotine [From Nicoderm CQ] Adverse Reaction (Intermediate, Unverified 01/10/18 13:58) RASH Medications aspirin (Aspir-) 81 mg PO DAILY brimonidine 0.2% RIGHT EYE (OD) cholecalciferol (vitamin D3) 10,000 units PO 1XW cyclobenzaprine 10 mg PO .every day as needed glipizide ER 2.5 mg PO QDAY lancets BID latanoprost 0.005% 1 drop BOTH EYES (OU) DAILY OneTouch Verio Flex Start (blood-glucose meter) Dx E11.9 TEST STRIPS Test BS daily NS OneTouch Verio test strips (blood sugar diagnostic) Dx E11.9 TEST STRIPS Test BS daily NS rosuvastatin TAKE ONE TABLET BY MOUTH AT BEDTIME Fall Risk Medications:: No High Risk Medications HIV Testing Offer - ages 13-64 HIV testing Offer: No Hep C Testing Offered: No Coronavirus Screening Screening Have you traveled outside of [facility] or [facility] in the last 14 days.: No Has patient experienced coronavirus symptoms: No PFSH Medical History (Updated 08/30/19 @ 10:37 by Shirin Hernandez NP) Bilateral hip pain bronchioloitis from smoking Carotid artery stenosis Chronic bronchitis Cathead Operator ti renal impairment Dehydration Diabetes mellitus Dr Yuan rule out COPD Gastroesophageal reflux disease Hyperlipidemia leg cramps Polyp of colon Vitamin D deficiency Surgical History (Updated 07/05/19 @ 07:30 by Shirin Hernandez NP) Angioplasty of vein History of - surgery History of - surgery History of colonoscopy Hx of total hysterectomy Status post tubal ligation Family History (Updated 11/14/14 @ 22:04 by ) Mother No problems noted. Father No problems noted. Other Diabetes Social History (Updated 08/30/19 @ 10:07 by Meryl Young) Does the Patient have a Healthcare Proxy: Yes Does Patient have a DNR?: Yes Does Patient have a Living Will?: No how long ago did patient quit smokin yrs ago but vaps. will be quitting as son as vap runs out.Not allowed i HPI Additional HPI HPI Details: c/o pain with swallowing, going on since june. More so with chunks of meat. Notes that sometimes is "brings tears to her eyes". Review of Systems Const All systems reviewed are unremarkable except as noted in HPI and below Reports as per HPI GI Details: Pain with swallowing ( lower esophageal ) Genitourinary: Reports system reviewed and no additional complaints, except as documented and as perHPI Exam Const General: cooperative, healthy appearing and comfortable Nutritional Appearance: average body habitus and well nourished Orientation: alert, awake and oriented x3 Resp Effort Inspection: normal respiratory effort Assessment Plan Assessment Plan (1) Chronic renal impairment: Status: None Comment: I will stop the metformin. Start low dose ER glipizide. She will continue to watch her diet. Plenty of water. Repeat labs in 3 months. SNOMED Code(s): 615241672 Category: Medical Orders: Orders: CMP 3 Months (2) Pain with swallowing: Status: Acute Comment: Refuses endoscopy right now, but will do an UGI. Start with the UGI, consider further imaging from there. Noted that she is a smoker. Code(s): R13.10 - Dysphagia, unspecified SNOMED Code(s): 10763130 Category: Medical Orders: Orders: Xray UGI w/o KUB-SINGLE CONTRA 1 Week Orders Other Medications: New: glipizide ER 2.5 mg PO QDAY 30 tabs 2RF Electronically Signed By: <Electronically signed by Shirin Hernandez NP> Date/Time Signed: 08/30/19 1037 Name Value Range Interpretation Code Description Data Kadie rce(s) Supporting Document(s) ID Date Data Source [id number] 08/25/2019 03:35:00 PM EDT [facility] [address] [place] [address] [phone] NAME SEX PT STATUS ACCOUNT NUMBER KIN CHMABERS REG REF [id number] ORDERING PHYSICIAN LOCATION MEDICAL RECORD NO. Shirin DEVAUGHN Hernandez CT [id number] ATTENDING PHYSICIAN DATE OF DATE OF EXAM/TIME Shirin Hernandez JYOTSNA 1950 08/25/191127 TYPE / EXAM CT Thorax without contrast REASON FOR EXAM Lung cancer screening COMPARISON: None TECHNIQUE: Non-Enhanced Multidetector-Row Chest Computed Tomography images were acquired. 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 Adjacentsubsegmental atelectasis that have been seen on previous [...] the imaged portion of the upper abdomen. Ahiatal hernia is seen. Additional findings: None. IMPRESSION: [...] reconstruction, automated exposure control, as well as adaptivedose shielding. Reported By Dieudonne De La Garza MD on 08/25/19 153 Signed By Dieudonne De La Garza MD on 08/25/19 153 Date Time CC: Shirin Hernandez; Dieudonne De La Garza MD Techn: PELBU Trans Dt/Tm: Trans by: DT Prt Dt/Tm: 5: Total DLP = 286.00 mGy-cm : Total Radiation Dose = 3.7180 mSv Lifetime Dose: 4.7320 mSv Name Value Range Interpretation Code Description Data Kadie rce(s) Supporting Document(s) ID Date Data Source [id number] 08/22/2019 08:17:00 AM [facility] Name Value Range Interpretation Code Description Data Kadie rce(s) Supporting Document(s) Urea nitrogen [Mass/volume] in Serum or Plasma 22 mg/dL 9-23 N [facility] Sodium [Moles/volume] in Serum or Plasma 142 mmol/L 132-146 N [facility] Potassium [Moles/volume] in Serum or Plasma 5.0 mmol/L 3.5-5.5 [facility] Chloride [Moles/volume] in Serum or Plasma 107 mmol/L 99-109 [facility] Carbon dioxide, total [Moles/volume] in Serum or Plasma 30 mmol/L 20 -31 N [facility] Anion gap in Serum or Plasma 10 mmol/L 8-16 N [facility] Glucose [Mass/volume] in Serum or Plasma 129 mg/dL 74-106 Above high normal [facility] Creatinine 1.4 mg/dL 0.5-1.1 Above high normal [facility] Glomerular filtration rate/1.73 sq M.pre dicted [Volume Rate/Area] in Serum or Plasma 38 ml/min ABOVE 60 [facility] ital Calcium [Mass/volume] in Serum or Plasma 9.5 mg/dL 8.5-10.1 N [facility] ID Date Data Source [id number] 07/04/2019 09:55:00 AM [facility] Patient Name: KIN CHAMBERS : 1950 Sex: F Pt Unit #: [id number] Location:[facility] Provider: Visit Date/Time: 07/04/19 Primary Insurance: WE[employer] FEE FOR SERVICE Secondary Insurance: Self Pay Intake Vital Signs 07/04/19 09:56 Current Height 5 ft 1.5 in Current Weight 174 lb Weight Measurement Method Standing Scale BMI 32.3 BP 138/82 Blood Pressure Location Lt brachial Position Sitting Respiration 18 Pulse 67 Pulse Strength Normal Pulse Source Pulse Oximeter Temp 97.9 F Temp Source Oral Pulse Oximetry (%) 97 Oxygen Delivery Method room air Intake Visit Reasons: Diabetes follow-up Nurse Note: Pt presents today for follow up for diabetes. Pt states that she checks her blood sugars daily. Pt is concerned about taking the Metformin. She says that it bothers her stomach at times and doesn't think its working well anymore. Computer Engineering Technician Required: No Accompanied by: Self / Same as Patient Is patient in pain?: Yes (left thumb) Pain scale (1-10): 10 Allergies tramadol [Tramadol] Allergy (Severe, Unverified 01/10/18 13:58) swelling of face and body bacitracin [From Polysporin] Allergy (Unknown, Unverified 01/10/18 13:58) polymyxin B [From Polysporin] Allergy (Unknown, Unverified 01/10/18 13:58) nicotine [From Nicoderm CQ] Adverse Reaction (Intermediate, Unverified 01/10/18 13:58) RASH Is last menstrual period known: No Post menopausal: No Patient : No Fall Risk History of falls: No Ambulatory Aid:: None Gait/Transferring:: Normal HIV Testing Offer - ages 13-64 Requirement for HIV testing offer been met?: Patient reports past refusal SBIRT Annual Questionnaire Are you currently in recovery for alcohol or substance use?: No How many times in the past year have you had 4 or more drinks in a day?: None How many times in the past year have you used a recreational drug or used a prescription medication for nonmedical reasons?: None Do you need a note to return Do you need a note to return to daycare/school/sports/work: No Coronavirus Screening Screening Have you traveled outside of [facility] or [facility] in the last 14 days.: No Has patient experienced coronavirus symptoms: No PFSH Medical History (Updated 07/05/19 @ 07:30 by Shirin Hernandez NP) Bilateral hip pain (Inactive) bronchioloitis from smoking Carotid artery stenosis Chronic bronchitis Chronic renal impairment Dehydration Diabetes mellitus Dr Yuan rule out COPD Gastroesophageal reflux disease Hyperlipidemia leg cramps Polyp of colon Vitamin D deficiency Surgical History (Updated 07/05/19 @ 07:30 by Shirin Hernandez NP) Angioplasty of vein History of - surgery History of - surgery History of colonoscopy Hx of total hysterectomy (Inactiv e) Status post tubal ligation Family History (Updated 11/14/14 @ 22:04 by ) Mother No problems noted. Father No problems noted. Other Diabetes Social History (Updated 02/14/19 @ 11:28 by Meryl Young) Does the Patient have a Healthcare Proxy: Yes Does Patient have a DNR?: Yes Does Patient have a Living Will?: No how long ago did patient quit smokin yrs ago but vaps HPI Additional HPI HPI Details: Kin presents to the clinic for her DMII follow up. She has gained about 14 lbs over the winter. She is discouraged by this and has bought "diet pills" to help her with weight loss. "[id number]". She has not been taking her metformin daily. A1C is up. Adult Diabetic Follow-Up Are you having any pain?: No Type: type 2 Glucose control symptoms: Reports high post-meal glucose Weight and fatigue symptoms: Reports weight gain Cardiopulmonary symptoms: Denies chest pain with activity, chest pain at rest, dyspnea, dyspnea on exertion, dyspnea at rest, claudication, myalgias, postural hypotension, lightheadedness or dizziness GI symptoms: Denies increased hunger, early satiety, nausea/dyspepsia, vomiting, diarrhea or constipation Skin and extremity symptoms: Denies tingling/numbness/burning, erectile dysfunction, foot ulcers, poorly healing wound, recurrent infections or claudication Other symptoms: Denies blurry vision, change in vision, recurrent infections, depression or other Pertinent visit history: Denies recent visit to ER, recent hospital admission, recent DKA, recent 911 calls, recent severe lows, recent glucagon injection and other Home monitoring: verbal report Frequency (per week): 3-4 times per week Percentage of fasting blood glucose within goal: >50% of the time Dietary compliance: poor (Admits that she has been eating a lot of sweets lately. ) Diabetic diet reviewed: Yes Diabetic counseling given: Yes Has patient/family had Diabetes education in past year: Yes Glucose testing: understands testing schedule ID bracelet: declined information Type(s) of exercise: walking (yard work) Frequency of exercise: 1-2 Risk factor: 1. Do you have diabetes?: yes, 2. Do you have (or have you ever had) any of the following: CHD, CAD, heart attack, noncoronary atherosclerosis, abdominal aneurysm, peripheral artery disease, carotid artery stenosis?: no, 3. Do you have a close male relative who had cardiovascular disease (such as a heart attack) before the age of 50 or a female relative who had itbefore age 60?: yes, 4. Do you use tobacco in any form (cigarettes, e-cigarettes, cigars, etc.)?: yes, 5. Do you have hypertension (high blood pressure)?: yes and 6. 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, followed by supervisor engines road and other History of retinopathy: No Date of last dilated eye exam: 07/16/18 Retinopathy details: Reports followed by scalp treatment operator Date of last ophthalmology visit: 05/17/19 History of neuropathy: No Date of last foot exam: 07/04/19 Neuropathy details: Denies on medications for pain, loss of protective sensation, history of foot ulcers, history of amputations, autonomic neuropathy, gastroparesis and followed by scalp treatment operator Checks feet nightly?: Yes Foot care education given: Yes At risk counseled: Yes Dentures: No Visual/sensory: normal Monofilament exam: L 1st metatarsals: normal, Left 3rd metatarsals monofilament exam: normal, L 5th metatarsals: normal, L great toe: normal, L 3rd toe: normal, L 5th toe: normal, Left medial mid foot: normal, Left lateral mid-foot: normal, Left mid-heel: normal, Left mid-dorsum foot: normal, R 1st metatarsals: normal, R 3rd metatarsals: normal, R 5th metatarsals: normal, R great toe: normal, R 3rd toe: normal, R 5th toe: normal, Right medial mid foot: normal, Right lateral mid- foot: normal,Right mid-heel: normal and Right mid-dorsum foot: normal Monofilament foot exam results: Left foot: normal and Right foot: normal Review of Systems Const Reports weight gain Eyes Denies blurry vision and Denies change in vision ENT Denies dizziness Card Denies chest pain at rest, Denies chest pain with activity, Denies claudication, Denies lightheadedness, Denies dyspnea and Denies dyspnea on exertion Resp Denies dyspnea and Denies dyspnea on exertion GI Denies constipation, Denies early satiety, Denies diarrhea and Denies vomiting Musc Denies myalgias Neuro Denies dizziness Psych Denies depression Exam Const General: cooperative, healthy appearing and comfortable Nutritional Appearance: obese Orientation: alert, awake and oriented x3 HENMT Teeth and gingiva: no dentures Resp Effort Inspection: normal respiratory effort Auscultation: clear to auscultation bilaterally Cardio Rate: regular rate Rhythm: regular rhythm Heart Sounds: S1 normal and S2 normal Skin Lesions: no lesions Rashes: no rashes Psych Appearance: grossly normal and well kempt Mental Status: mental status grossly normal Speech and Movement: speech and movement normal Mood: congruent mood Affect: normal affect Attitude: cooperative Thought Process: normal Thought Content: normal Insight: insight good Judgment: judgment good Diabetic Foot Monofilament exam: L 1st metatarsals: normal, Left 3rd metatarsals monofilament exam: normal, L 5th metatarsals: normal, L great toe: normal, L 3rd toe: normal, L 5th toe: normal, Left medial mid foot: normal, Left lateral mid-foot: normal, Left mid-heel: normal, Left mid-dorsum foot: normal, R 1st metatarsals: normal, R 3rd metatarsals: normal, R 5th metatarsals: normal, R great toe: normal, R 3rd toe: normal, R 5th toe: normal, Right medial mid foot: normal, Right lateral mid-foot: normal,Right mid-heel: normal and Right mid-dorsum foot: normal Monofilament foot exam results: Left foot: normal and Right foot: normal Assessment Plan Assessment Plan (1) Diabetes mellitus: Comment: Discussed diet and exercise. she is using a "diet pill" currently. I advise against this as many of the diet pills that are on the market can effect your HR. She expresses understanding, but it isevident that she will be using them regardless. She will start taking her metformin BID rather than daily, and monitoring her BG's to ensure they do not drop too much, encouraged to eat smaller high protein meals through out the day to maintain her BG's. Follow up in 6 months for annual PE. Due for repeat CT lung CA screening as advised by the radiologist in February, in August. She is aware. The order is in. SNOMED Code(s): 16932079 Category: Medical Orders Other Orders: Orders: CT Low Dose Lung Ca Screening 09/14/19 F17.200, F17.210 Electronically Signed By: <Electronically signed by Shirin Hernandez NP> Date/Time Signed: 07/05/19 0733 Name Value Range Interpretation Code Description Data Kadie rce(s) Supporting Document(s) ID Date Data Source [id number] 06/28/2019 08:37:00 AM EDT [facility] Name Value Range Interpretation Code Description Data Kadie rce(s) Supporting Document(s) Hemoglobin A1c % 6.5 % 4.0-6.0 Above high normal [facility] The following ranges may be u sed for interpretation of results: HGBA1C degree of glucose control: Greater than 8%: Action Suggested * Less than 7%: Goal of Diabetic Therapy Less than 6%: NormalFactors such as duration of diabetes, adherence to therapyand the age of the patient should also be considered inassessing the degree of blood glucose control.* High risk of developing care home complications such asretinopathy, nephropathy, neuropathy, cardiopathy, etc. Some danger of hypoglycemic reaction in Type I diabetics.Some glucose intolerant individuals and "Sub Clinical"diabetics may demonstrate HGBA1C levels in this area. Glucose mean value [Moles/volume] in Blood Estimated f rom glycated hemoglobin 140 mg/dL [facility] l An A1C of 7% - the goal of diabetic ther apy - is equivalentto an EAG of 154 mg/dl. ID Date Data Source [id number] 06/28/2019 08:56:00 AM EDT [facility] Name Value Range Interpretation Code Description Data Kadie rce(s) Supporting Document(s) Urea nitrogen [Mass/volume] in Serum or Plasma 21 mg/dL 9-23 N [facility] Sodium [Moles/volume] in Serum or Plasma 144 mmol/L 132-146 N [facility] Potassium [Moles/volume] in Serum or Plasma 4.3 mmol/L 3.5-5.5 N [facility] Chloride [Moles/volume] in Serum or Plasma 107 mmol/L 99-109 N [facility] Carbon dioxide, total [Moles/volume] in Serum or Plasma 29 mmol/L 20 -31 N [facility] Anion gap in Serum or Plasma 12 mmol/L 8-16 N [facility] Glucose [Mass/volume] in Serum or Plasma 122 mg/dL 74-106 Above high normal [facility] Creatinine 1.1 mg/dL 0.5-1.1 N [facility] Glomerular filtration rate/1.73 sq M.pre dicted [Volume Rate/Area] in Serum or Plasma 50 ml/min ABOVE 60 [facility] ital Alanine aminotransferase [Enzymatic acti vity/volume] in Serum or Plasma by With P-5'-P 15 U/L 10-49 N [facility] ital Aspartate aminotransferase [Enzymatic ac tivity/volume] in Serum or Plasma by With P-5'-P 15 U/L 0-33 N [facility] pital Alkaline phosphatase [Enzymatic activity/volume] in Serum or Plasma 109 U/L 45-129 N [facility] Calcium [Mass/volume] in Serum or Plasma 9.8 mg/dL 8.5-10.1 N [facility] Bilirubin.total [Mass/volume] in Serum or Plasma 0.7 mg/dL 0.3-1.2 N [facility] Albumin [Mass/volume] in Serum or Plasma by Bromocresol purple (BCP) dye binding method 4.3 g/dL 3.2-4.8 N [facility] ital Protein [Mass/volume] in Serum or Plasma 7.5 g/dL 5.7-8.2 N [facility] ID Date Data Source [id number] 06/29/2019 06:06:00 AM EDT [facility] Name Value Range Interpretation Code Description Data Kadie rce(s) Supporting Document(s) 25-Hydroxyvitamin D2+25-Hydroxyvitamin D3 [Mass/volume ] in Serum or Plasma 46.5 ng/mL 30.0-100.0 [facility] Vitamin D deficiency has been defined by the [place] [employer] and an Endocrine Society practice guideline as alevel of serum 25-OH vitamin D less than 20 ng/mL (1,2).The Endocrine Society went on to further define vitamin Dinsufficiency as a level between 21 and 29 ng/mL (2).1. IOM ([place] [employer]). 2010. Dietary reference intakes for calcium and D. [place]: The National Academies Press.2. Rona MF, Izabel NC, Ezequiel KERR, et al. Evaluation, treatment, and prevention of vitamin D deficiency: an Endocrine Society clinical practice guideline. JCEM. 2010; 96(7):1911- 30.Performed at: RN - [facility] [address] [id number] Director: Yvrose Interiano MD, Phone: [phone] ID Date Data Source [id number] 06/28/2019 08:56:00 AM EDT [facility] Name Value Range Interpretation Code Description Data Kadie rce(s) Supporting Document(s) Triglycerides 109 mg/dL 0-150 N [facility] Cholesterol 151 mg/dL 120-200 [facility] HDL Cholesterol 66 mg/dL [facility] HDL Less than 40 mg/dL: Major risk for CHDHDL Greater than 59 mg/dL: Low risk for CHD LDL Cholesterol, Calc 64 mg/dL 0-100 N [facility] ID Date Data Source [id number] 03/21/2019 08:52:00 AM EST [facility] Patient Name: KIN CHAMBERS : 1950 Sex: F Pt Unit #: [id number] Location:[facility] Provider: Visit Date/Time: 03/21/19 Primary Insurance: [employer] FEE FOR SERVICE Secondary Insurance: Self Pay ADDENDUM CT evaluated with radiologist. Will repeat in 6 months, due to an area not well assessed. Currently on Omeprazole for GERD (hiatal hernia identified) Started on Singulair for cough coverage. I think this is likely PND, perhaps allergy (heat, house allergens, etc) She will follow up if not improved. Otherwise I will see her in June for her AMV. 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: No Accompanied by: Self / Same as Patient Is patient in pain?: No Allergies tramadol [Tramadol] Allergy (Severe, Unverified 01/10/18 13:58) swelling of face and body bacitracin [From Polysporin] Allergy (Unknown, Unverified 01/10/18 13:58) polymyxin B [From Polysporin] Allergy (Unknown, Unverified 01/10/18 13:58) nicotine [From Nicoderm CQ] Adverse Reaction (Intermediate, Unverified 01/10/18 13:58) RASH Medications aspirin (Aspir-) 81 mg PO DAILY cholecalciferol (vitamin D3) 10,000 units PO 1XW cyclobenzaprine 10 mg PO .every day as needed lancets BID latanoprost 0.005% 1 drop OU DAILY metformin 500 mg PO BID 30 days montelukast 10 mg PO QPM omeprazole 40 mg PO QDAY OneT ouch Verio (blood sugar diagnostic) Dx E11.9 TEST STRIPS Test BS daily NS OneTouch Verio Flex Start (blood-glucose meter) Dx E11.9 TEST STRIPS Test BS daily NS rosuvastatin 20 mg PO HS 30 days Is last menstrual period known: No Post menopausal: Yes Patient : No Fall Risk History of falls: No Ambulatory Aid:: None Gait/Transferring:: Normal Medications:: No High Risk Medications PHQ-2/9 Over the last 2 weeks, how often have you been bothered by any of the following problems? 1. Little interest or pleasure in doing things: not at all 2. Feeling down, depressed, or hopeless: not at all Total score: 0 HIV Testing Offer - ages 13-64 HIV testing Offer: Yes Requirement for HIV testing offer been met?: Patient reports past refusal Hep C Testing Offered: Yes Hep C Requirement met: Refuses today SBIRT Annual Questionnaire Are you currently in recovery for alcohol or substance use?: No How many times in the past year have you had 4 or more drinks in a day?: None How many times in the past year have you used a recreational drug or used a prescription medication for nonmedical reasons?: None Do you need a note to return Do you need a note to return to daycare/school/sports/work: No [facility] Medical History (Updated 03/21/19 @ 09:16 by Shirin Hernandez NP) bronchioloitis from smoking Carotid artery stenosis Chronic bronchitis Chronic renal impairment Dehydration Diabetes mellitus Dr Yuan rule out COPD Gastroesophageal reflux disease Hyperlipidemia leg cramps Polyp of colon Vitamin D deficiency Surgical History (Updated 01/03/19 @ 11:49 by Shirin Hernandez NP) Angioplasty of vein History of - surgery History of - surgery History of colonoscopy Status post tubal ligation Family History (Updated 11/14/14 @ 22:04 by ) Mother No problems noted. Father No problems noted. Other Diabetes Social History (Updated 02/14/19 @ 11:28 by Meryl Young) Does the Patient have a Healthcare Proxy: Yes Does Patient have a DNR?: Yes Does Patient have a Living Will?: No how long ago did patient quit smokin yrs ago but vaps HPI Additional HPI HPI Details: Kin presents to the clinic for follow up on bilateral hip pain. Doing much better. She was seen by a chiropractor, pain is gone. She continues with the cough; describes it as "froggy". She also would like a couple AK's treated on her forehead. Review of Systems Const All systems reviewed are unremarkable except as noted in HPI and below Reports as per HPI Resp Reports cough Musc Denies back pain, Denies arthralgias, Denies limited range of motion, Denies muscle cramps and Denies muscle weakness Skin/Breast Details: Rough, dry patches to forehead. X2 Exam Const General: cooperative, healthy appearing and comfortable Nutritional Appearance: average body habitus and well nourished Orientation: alert, awake and oriented x3 Resp Effort Inspection: normal respiratory effort Auscultation: clear to auscultation bilaterally Skin Lesions: lesion noted (2 rough skin patches noted to forehead. ) Office Procedures Liquid Nitrogen Cryotherapy Details: 2 AK's noted to forehead right sided above brow line. Procedure performed by: Shirin Hernandez Informed consent given: Yes Consent signed: No (Verbal consent obtained; patient aware of procedure and risks. ) Number of freeze-thaw cycles: 2 Duration of liquid nitrogen freeze-thaw cycles (sec): 5-7 Patient tolerated procedure: well Complications: No Additional details: Verbal consent obtained. 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 (2) Cough: Status: Acute Comment: Start singulair at bedtime. Follow up in June as scheduled. Code(s): R05 - Cough SNOMED Code(s): 94072947 Category: Medical (3) Actinic keratoses: Status: Acute Comment: 2 areas cryo done today. Well-tolerated. Bacitracin applied (okay to use despite allergy to polysporin). Follow up as needed. Discussed healing. She has had this done numerous times. Code(s): L57.0 - Actinic keratosis SNOMED Code(s): 520164116 Category: Medical Orders Other Medications: New: montelukast 10 mg PO QPM 30 tabs 2RF Electronically Signed By: <Electronically signed by Shirin Hernandez NP> Date/Time Signed: 03/21/19 09 Name Value Range Interpretation Code Description Data Kadie rce(s) Supporting Document(s) ID Date Data Source [id number] 03/20/2019 02:36:00 PM [facility] [address] [place] [address] [phone] NAME SEX PT STATUS ACCOUNT NUMBER KIN CHAMBERS REG REF [id number] ORDERING PHYSICIAN LOCATION MEDICAL RECORD NO. Shirin Hernandez MAMMO [id number] ATTENDING PHYSICIAN DATE OF DATE OF EXAM/TIME Shirin Hernandez NP 1950 03/20/19 / 1142 TYPE / EXAM 3D DIG MAMMO SCREEN [...] mammogram was read with the assistance of [employer], an FDA-approved computer-aided detection system for mammography. Reported By Dieudonne De La Garza MD on 03/20/19 1436 Signed By Dieudonne De La Garza MD on 03/20/19 1437 Date Time CC: Shirin Hernandez; Dieudonne De La Garza MD Techn: PELBU Trans Dt/Tm: Trans by: DT Prt Dt/Tm: [id number]: Total DLP = 0.00 mGy-cm 202- 0007: Total Radiation Dose = 0.0000 mSv Lifetime Dose: 1.0140 mSv Name Value Range Interpretation Code Description Data Kadie rce(s) Supporting Document(s) ID Date Data Source [id number] 02/27/2019 01:18:00 PM [facility] [address] [place] [address] [phone] NAME SEX PT STATUS ACCOUNT NUMBER KIN CHAMBERS REG REF [id number] ORDERING PHYSICIAN LOCATION MEDICAL RECORD NO. Shirin LITTLEFariha Hernandez CT [id number] ATTENDING PHYSICIAN DATE OF DATE OF EXAM/TIME Shirin Hernandez PACKAGE DYEING MACHINE OPERATOR 1950 02/24/191144 TYPE / EXAM CT Low Dose Lung [...] reconstruction, automated exposure control, as well as adaptivedose shielding. Reported By Dieudonne De La Garza MD on 02/27/19 1318 Signed By Dieudonne De La Garza MD on 02/27/19 1326 Date Time CC: Shirin Hernandez; Dieudonne De La Garza MD Techn: MORSA Trans Dt/Tm: Trans by: DT Prt Dt/Tm: [id number]: Total DLP = 78.00 mGy-cm 8410-8311: Total Radiation Dose = 1.0140 mSv Lifetime Dose: 1.0140 mSv Name Value Range Interpretation Code Description Data Kadie rce(s) Supporting Document(s) ID Date Data Source [id number] 02/14/2019 04:35:00 PM [facility] [address] [place] [address] [phone] NAME SEX PT STATUS ACCOUNT NUMBER KIN CHAMBERS REG REF [id number] ORDERING PHYSICIAN LOCATION MEDICAL RECORD NO. Shirin Hernandez RAD [id number] ATTENDING PHYSICIAN DATE OF DATE OF EXAM/TIME Shirin Hernandez NP 1950 02/14/191228 TYPE / EXAM HIPS BILAT 2 VIEW W/PELVIS REASON FOR EXAM Bilateral hip pain worsening over 3 months COMPARISON: None FINDINGS: The hip joints are well seated bilaterally. No acute fracture or dislocation is present. The joint spaces are fairly well- preserved. No acute findings are seen within the pelvis or lumbosacral spine.A transitional vertebra is suspected at the lumbosacral junction. IMPRESSION: No acute radiographic findings. Reported By Jorje Santillan MD on 02/14/191634 Signed By Jorje Santillan MD on 02/14/191637 Date Time CC: Jorje Santillan MD; Shirin Hernandez Techn: MORSA Trans Dt/Tm: Trans by: DT Prt Dt/Tm: [id number]: Total DLP = 0.00 mGy-cm Fluoroscopy Time (in secs): Name Value Range Interpretation Code Description Data Kadie rce(s) Supporting Document(s) ID Date Data Source [id number] 02/14/2019 01:43:00 PM [facility] [address] [id number] [phone] NAME SEX PT STATUS ACCOUNT NUMBER KIN CHAMBERS REG REF [id number] ORDERING PHYSICIAN LOCATION MEDICAL RECORD NO. Shirin DEVAUGHN Hernandez RAD [id number] ATTENDING PHYSICIAN DATE OF DATE OF EXAM/TIME Shirin Hernandez NP 1950 02/14/191228 TYPE / EXAM Xray Chest 2 view [...] artery. Surgical clips are noted within the rightupper abdominal quadrant compatible cholecystectomy. Postsurgical changes of the distal aspect of the right clavicle are suspected but this is uncertain. IMPRESSION: No acute cardiopulmonary findings. Reported By Jorje Santillan MD on 02/14/19 1343 Signed By Jorje Gaston MD on 02/14/19 1348 Date Time CC: Jorje Santillan MD; Shirin Hernandez Techn: MORSA Trans Dt/Tm: Trans by: DT Prt Dt/Tm: 1820-4530: Total DLP = 0.00 mGy-cm Fluoroscopy Time (in secs): Name Value Range Interpretation Code Description Data Kadie rce(s) Supporting Document(s) ID Date Data Source [id number] 02/14/2019 11:27:00 AM [facility] Patient Name: KIN CHAMBERS : 1950 Sex: F Pt Unit #: [id number] Location:[facility] Provider: Visit Date/Time: 02/14/19 Primary Insurance: [employer] FEE FOR SERVICE Secondary Insurance: Self Pay Intake Vital Signs 02/14/19 11:31 BP 124/66 Blood Pressure Location Rt brachial Position Sitting Respiration 16 Pulse 78 Pulse Source Pulse Oximeter Temp 98.6 F Temp Source Oral Pulse Oximetry (%) 98 Intake Visit Reasons: Cough follow-up Nurse Note: Cough remains-no better. was dx bronchitis. heartburn is terrible. Been off Zantac. painin bilateral hips-existing.using 800mg Motrin with no effect-getting worse. OTC.(R) hip hurts when going up and down stairways. (L) hip hurts to sleep on it. refused to get weighed. Is patient in pain?: Yes (8) Allergies tramadol [Tramadol] Allergy (Severe, Unverified 01/10/18 13:58) swelling of face and body bacitracin [From Polysporin] Allergy (Unknown, Unverified 01/10/18 13:58) polymyxin B [From Polysporin] Allergy (Unknown, Unverified 01/10/18 13:58) nicotine [From Nicoderm CQ] Adverse Reaction (Intermediate, Unverified 01/10/18 13:58) RASH Medications aspirin (Aspir-) 81 mg PO DAILY cholecalciferol (vitamin D3) 10,000 units PO 1XW cyclobenzaprine 10 mg PO .every day as needed lancets BID latanoprost 0.005% 1 drop OU DAILY metformin 500 mg PO BID 30 days omeprazole 40 mg PO QDAY OneTouch Verio (blood sugar diagnostic) Dx E11.9 TEST STRIPS Test BS daily NS OneTouch Verio Flex Start (blood-glucose meter) Dx E11.9 TEST STRIPS Test BS daily NS rosuvastatin 20 mg PO HS 30 days Fall Risk Medications:: Analgesics HIV Testing Offer - ages 13-64 HIV testing Offer: No Hep C Testing Offered: No PFSH Medical History (Updated 02/14/19 @ 13:24 by Shirin Hernandez NP) bronchioloitis from smoking Carotid artery stenosis Chronic bronchitis Chronic renal impairment Dehydration Diabetes mellitus Dr Yuan rule out COPD Gastroesophageal reflux disease Hyperlipidemia leg cramps Polyp of colon Vitamin D deficiency Surgical History (Updated 01/03/19 @ 11:49 by Shirin Hernandez NP) Angioplasty of vein History of - surgery History of - surgery History of colonoscopy Status post tubal ligation Family History (Updated 11/14/14 @ 22:04 by ) Mother No problems noted. Father No problems noted. Other Diabetes Social History (Updated 02/14/19 @ 11:28 by Meryl Young) Does the Patient have a Healthcare Proxy: Yes Does Patient have a DNR?: Yes Does Patient have a Living Will?: No how long ago did patient quit smokin yrs ago but vaps HPI Cough Follow-Up Associated symptoms: Reports dyspnea (with cough intermittently. ) and chest congestion Pulmonary Results: No Data to Display Review of Systems Const All systems reviewed are unremarkable except as noted in HPI and below Reports as per HPI ENT Reports post nasal drip Card Reports dyspnea (with cough intermittently. ) Resp Reports chest congestion, Reports cough, Reports excessive phlegm production and Reports dyspnea (with cough intermittently. ) Musc Details: Bilateral hip pain. Exam Const General: cooperative, healthy appearing and comfortable Nutritional Appearance: average body habitus and well nourished Orientation: alert, awake and oriented x3 Resp Effort Inspection: normal respiratory effort Auscultation: clear to auscultation bilaterally Cardio Rate: regular rate Rhythm: regular rhythm Heart Sounds: S1 normal and S2 normal Extrem General: normal to inspection and full ROM Other: ROM good, pain and pulling more so on the right with cross over and backward extension. Assessment Plan Assessment Plan (1) Cough: Code(s): R05 - Cough Plan - Shirin Hernandez PACKAGE DYEING MACHINE OPERATOR: I will order chest xray. Consider continued abx if necessary. Push fluids. Follow up in 1 week if not better. (2) Bilateral hip pain: Status: Acute Comment: Xrays ordered. Code(s): M25.551 - Pain in right hip; M25.552 - Pain in left hip SNOMED Code(s): 58182681 Category: Medical Orders: Orders: HIPS BILAT 2 VIEW W/PELVIS Today Orders Other Medications: New: omeprazole 40 mg PO QDAY 30 caps 2RF Other Orders: Orders: Xray Chest 2 view PA/LAT Today R06.02 Electronically Signed By: <Electronically signed by Shirin Hernandez PACKAGE DYEING MACHINE OPERATOR> Date/Time Signed: 02/14/19 1325 Name Value Range Interpretation Code Description Data Kadie rce(s) Supporting Document(s) Procedure Social History Code Duration Value Status Description Data Source(s ) 10/30/2019 04:02:00 PM EDT Light tobacco smoker comple santos Light tobacco smoker [facility] Smoking 10/30/2019 04:02:00 PM EDT Light tobacco smoker comple santos Light tobacco smoker [facility] 08/30/2019 10:07:24 AM EDT Vapes completed Vapes [facility] Smoking 08/30/2019 10:07:00 AM EDT Unknown if ever smoked comp leted Unknown if ever smoked [facility] 02/14/2019 11:28:26 AM EST Former smoker completed Former smoker [facility] 02/14/2019 11:28:26 AM EST Former smoker completed Former smoker [facility] 02/14/2019 11:28:26 AM EST Former smoker completed Former smoker [facility] 02/14/2019 11:28:26 AM EST Former smoker completed Former smoker [facility] Smoking 02/14/2019 11:28:00 AM EST Former smoker completed Former smoker [facility] Smoking 02/14/2019 11:28:00 AM EST Former smoker completed Former smoker [facility] Smoking 02/14/2019 11:28:00 AM EST Former smoker completed Former smoker [facility] Vital Signs ID Date Data Source UNK Name Value Range Interpretation Code Description Data Source(s) Body temperature 97.0 [degF] 97.0 [degF] [facility] ([facility]) Body weight 80.741 kg 80.741 kg [facility] Body mass index (BMI) [Ratio] 32.6 kg/m2 32.6 k g/m2 [facility] ([facility]) Heart rate 66 /min 66 /min [facility] Diastolic blood pressure 82 mm[Hg] 82 mm[Hg] [facility] ([facility]) Systolic blood pressure 132 mm[Hg] 132 mm[Hg] M [facility] ([facility]) Body weight 178.00 [lb_av] 178.00 [lb_av] [facility] [facility] Body height 62 [in_i] 62 [in_i] [facility] 5'2" Body temperature 97.0 [degF] 97.0 [degF] [facility]) Body weight 78.019 kg 78.019 kg [facility]) Body mass index (BMI) [Ratio] 31.5 kg/m2 31.5 k g/m2 [facility]) Heart rate 69 /min 69 /min [facility]) Diastolic blood pressure 79 mm[Hg] 79 mm[Hg] [facility] ([facility]) Systolic blood pressure 133 mm[Hg] 133 mm[Hg] M [facility] ([facility]) Body weight 172.00 [lb_av] 172.00 [lb_av] [facility] T ([facility]) Body height 62 [in_i] 62 [in_i] [facility] 5'2" ID Date Data Source [id number] 12/07/2019 01:47:45 PM EDT [facility] Hospital Name Value Range Interpretation Code Description Data Source(s) WEIGHT RECORDED 170.00 pounds 170.00 pounds [facility] Height 61 Inches 061 Inches [facility] ID Date Data Source [id number] 03/18/2020 08:58:18 AM EST [facility] Name Value Range Interpretation Code Description Data Source(s) WEIGHT RECORDED 169.00 pounds 169.00 pounds [facility] Height 61 Inches 061 Inches [facility]
--- NOTE | 2020-04-02 08:24 | ROOR ---
Patient Name: Malia Bravo Procedure Date: 04/02/2020 8:08 AM Date of : 1950 Age: 69 Room: [facility] Gender: Female Note Status: Finalized Procedure: Upper Endoscopy + Biopsies Indications: Exclusion of esophageal ulcer, Follow-up of esophageal ulcer Providers: Sarmad Vazquez MD Referring MD: Shirin Hernandez NP Requesting Provider: Medicines: Monitored Anesthesia Care Complications: No immediate complications. Procedure: Pre-Anesthesia Assessment: - The heart rate, respiratory rate, oxygen saturations, blood pressure, adequacy of pulmonary ventilation, and response to care were monitored throughout the procedure. The Endoscope was introduced through the mouth, and advanced to the second part of duodenum. The upper GI endoscopy was accomplished without difficulty. The patient tolerated the procedure well. Findings: The Z-line was irregular and was found 35 cm from the incisors. Multiple biopsies were obtained with cold forceps for evaluation to rule out Franks's Esophagus randomly at the gastroesophageal junction. There is no endoscopic evidence of ulcerations in the lower third of the esophagus. A small hiatal hernia was present. No other significant abnormalities were identified in a careful examination of the stomach. The exam of the duodenum was otherwise normal. Impression: - Z-line irregular, 35 cm from the incisors. - Small hiatal hernia. - Multiple biopsies were obtained at the gastroesophageal junction. - The examination was otherwise normal. Recommendation: - Patient has a contact number available for emergencies. The signs and symptoms of potential delayed complications were discussed with the patient. Return to normal activities tomorrow. Written discharge instructions were provided to the patient. - Resume previous diet. - Discharge patient to home. - Follow an antireflux regimen. - Continue present medications. - Await pathology results. - Telephone GI clinic for pathology results in 1 week. - Return to referring physician. - Repeat upper endoscopy for surveillance based on pathology results. - The findings and recommendations were discussed with the patient. Procedure Code(s): --- Professional --- 81639, Esophagogastroduodenoscopy, flexible, transoral; with biopsy, single or multiple Diagnosis Code(s): --- Professional --- K22.8, Other specified diseases of esophagus K44.9, Diaphragmatic hernia without obstruction or gangrene K22.10, Ulcer of esophagus without bleeding CPT copyright 2019 [employer]. All rights reserved. The codes documented in this report are preliminary and upon health information coder review may be revised to meet current compliance requirements. Sarmad Vazquez MD Sarmad Vazquez MD 04/02/2020 8:24:18 AM Electronically signed by Sarmad Vazquez MD Number of Addenda: 0 Note Initiated On: 04/02/2020 8:08 AM Estimated Blood Loss: Estimated blood loss: none.
[2020-04-02 08:45] VITALS: BP 155/69
== END 2020-04-02 08:51 | disposition home or self-care (01) ==
LOC: M OPP 06:57
PROVIDERS: ATTEND Internal Medicine Gastroenterology
DX: K22.10 Ulcer of esophagus without bleeding (principal); D13.0 Benign neoplasm of esophagus; K22.8 Other specified diseases of esophagus; K44.9 Diaphragmatic hernia without obstruction or gangrene; E78.5 Hyperlipidemia, unspecified; E11.9 Type 2 diabetes mellitus without complications; R12 Heartburn; J44.9 Chronic obstructive pulmonary disease, unspecified; F17.290 Nicotine dependence, other tobacco product, uncomplicated; Z79.84 Long term (current) use of oral hypoglycemic drugs; Z79.899 Other long term (current) drug therapy
CPT/HCPCS: 43239; 88305; J3010

== ENCOUNTER → 2021-05-05 | Outpatient (CLI) | payer MEDICARE ==
[~2021-05-05] MED LIST changes: +CYCL10TA20 PO; -CYCL10TA5 PO; -OMEP-221 PO; +OMEP40CA5 PO
== END ==
LOC: M PLARAD 11:59
PROVIDERS: ATTEND Nurse Practitioner Family
DX: R91.1 Solitary pulmonary nodule (principal)
CPT/HCPCS: 78815; A9552

== ENCOUNTER → 2021-07-22 | Outpatient (CLI) | payer MEDICARE | LOC: M CARPUL 13:40 | PROVIDERS: ATTEND Internal Medicine Pulmonary Disease | DX: R91.1 Solitary pulmonary nodule (principal) ==

== ENCOUNTER → 2022-08-31 | Outpatient (CLI) | payer MEDICARE ==
[~2022-08-31] MED LIST changes: -ROSU20TA5 PO; +ROSU20TA61 PO
== END ==
LOC: M RAD 10:02
PROVIDERS: ATTEND Internal Medicine Pulmonary Disease
DX: R91.1 Solitary pulmonary nodule (principal); R91.8 Other nonspecific abnormal finding of lung field

== ENCOUNTER 2022-09-23 06:06 | Day surgery (SDC) | payer MEDICARE ==
[~2022-09-23] VITALS: Ht 154.9 cm; Wt 81.9 kg
[~2022-09-23 06:06] MED LIST changes: +FURO40TA2 PO; +METF-838 PO; +POTA-298 PO
[2022-09-23] MEDS ORDERED: LR 1,000 ML IV SCH ×2 (06:10→09:25)
[2022-09-23] MEDS ORDERED: CETACAINE SPRAY 5GM As Ordered ONE (07:12)
[2022-09-23] MEDS ORDERED: EPINEPHrine 1MG/10ML SYRINGE 1.5IN As Ordered ONE (07:13)
[2022-09-23] MEDS ORDERED: THROMBIN 5,000 UNITS VIAL As Ordered ONE (07:14)
[2022-09-23] MEDS ORDERED: LIDOCAINE 2% 100MG/5ML SDV (FOR ANES.) As Ordered ONE (07:23)
[2022-09-23] MEDS ORDERED: propofoL 200 MG/20 ML VIAL As Ordered ONE (07:23)
[2022-09-23] MEDS ORDERED: ONDANSETRON 4MG 2ML VIAL As Ordered ONE (07:23)
[2022-09-23] MEDS ORDERED: MIDAZOLAM INJ 2MG/2ML VIAL As Ordered ONE (07:23)
[2022-09-23] MEDS ORDERED: ROCURONIUM BROMIDE 50MG/5ML VIAL As Ordered ONE (07:23)
[2022-09-23] MEDS ORDERED: fentaNYL 100 MCG/2 ML INJECTION As Ordered ONE (07:24)
[2022-09-23] MEDS ORDERED: hydrALAZINE 20MG/ML 1ML VIAL As Ordered ONE (08:01)
[2022-09-23] MEDS ORDERED: ACETAMINOPHEN 1000MG 100ML IV BAG As Ordered ONE (08:29)
[2022-09-23] MEDS ORDERED: SUGAMMADEX SODIUM 500 MG/5 ML VIAL (BRIDION) As Ordered ONE (08:29)
[2022-09-23] MEDS ORDERED: ePHEDrine SULFATE 25 MG/5 ML(5MG/ML) SYRINGE As Ordered ONE (08:44)
[2022-09-23] MEDS ORDERED: fentaNYL 100 MCG/2 ML INJECTION IV PRN (09:25)
[2022-09-23] MEDS ORDERED: ONDANSETRON 4MG 2ML VIAL IV PRN (09:25)
[2022-09-23 12:05] VITALS: BP 148/67; TEMP 98.5; O2SAT 94
== END 2022-09-23 12:20 | disposition home or self-care (01) ==
LOC: M SDC 06:06
PROVIDERS: ATTEND Internal Medicine Pulmonary Disease
DX: D14.32 Benign neoplasm of left bronchus and lung (principal); J41.0 Simple chronic bronchitis
CPT/HCPCS: 31623; 31627; 31628; 31654; 71045; 76000; 88104; 88305; J0131; J0171; J0360; J1100; J2250; J2405; J3010

== ENCOUNTER → 2022-09-30 | Outpatient (CLI) | payer MEDICARE | LOC: M PLAIMG 10:17 | PROVIDERS: ATTEND Internal Medicine Pulmonary Disease | DX: R91.8 Other nonspecific abnormal finding of lung field (principal) ==

== ENCOUNTER → 2022-10-20 | Outpatient (CLI) | payer MEDICARE ==
[2022-10-20 10:05] LABS: ABG BASE EXCESS -3.5 (-2.0-2.0); ABG HCO3 20.3 MMOL/L (22.0-26.0); ABG O2 SATURATION 96.4 % (95.0-99.0); ABG PARTIAL PRESSURE CO2 33.2 mmHg (35.0-45.0); ABG PARTIAL PRESSURE O2 86.2 mmHg (75.0-100.0); ABG STANDARD HCO3 21.6 MMOL/L. (22.0-26.0); ABG TOTAL CO2 21.4 MMOL/L (23.0-31.0); ABG pH (ARTERIAL) 7.405 UNITS (7.350-7.450)
== END ==
LOC: M CARPUL 09:27
PROVIDERS: ATTEND Internal Medicine Pulmonary Disease
DX: R91.1 Solitary pulmonary nodule (principal)
CPT/HCPCS: 36415; 78815; 82803; 88738; 94060; 94726; 94729; A9552

== ENCOUNTER → 2023-03-01 | Day surgery (SDC) | payer MEDICARE ==
[~2023-03-01] VITALS: Ht 154.9 cm; Wt 81.6 kg
[~2023-03-01] MED LIST changes: +ASPI81TA26 PO; +COMB0.2S OU; +LIDOCAINE 2% 100MG/5ML SDV (FOR ANES.) As Ordered ONE; +NS 1,000 ML IV ONE; +PIOG1TAB37 PO; +fentaNYL 100 MCG/2 ML INJECTION As Ordered ONE; +propofoL 200 MG/20 ML VIAL As Ordered ONE
[2023-03-01 12:04] VITALS: TEMP 96.6
[2023-03-01 12:30] VITALS: BP 200/86; O2SAT 99
== END | disposition home or self-care (01) ==
LOC: M OPP 09:52
PROVIDERS: ATTEND Internal Medicine Gastroenterology
DX: K29.70 Gastritis, unspecified, without bleeding (principal); K44.9 Diaphragmatic hernia without obstruction or gangrene; K22.2 Esophageal obstruction; K22.89 Other specified disease of esophagus; K21.9 Gastro-esophageal reflux disease without esophagitis; E11.9 Type 2 diabetes mellitus without complications; Z79.02 Long term (current) use of antithrombotics/antiplatelets; Z79.82 Long term (current) use of aspirin; Z79.84 Long term (current) use of oral hypoglycemic drugs; Z79.891 Long term (current) use of opiate analgesic; Z88.1 Allergy status to other antibiotic agents; Z88.8 Allergy status to other drugs, medicaments and biological substances
CPT/HCPCS: 43249; 88305; J3010